=== PATIENT | male | born 1945 | race Caucasian/White ===

== ENCOUNTER 2016-06-09 10:45 | Emergency (ER) | payer OTHER, MEDICARE ==
[2016-06-09 10:56] VITALS: O2SAT 94
[2016-06-09] MEDS ORDERED: DOXYCYCLINE HYCLATE 100 MG CAP/TAB PO ONE (12:04)
[2016-06-09] MEDS ORDERED: TDAP ADULT 0.5 ML INJ (BOOSTRIX) IM ONE (12:04)
[2016-06-09] MEDS ORDERED: CEPHALEXIN 500 MG CAP PO ONE (12:04)
--- NOTE | 2016-06-09 12:04 | EDPHY ---
H & P Stated Complaint: Chronic scab/inflammation R elbow that is worse in last 48 hrs Source: Patient Exam Limitations: No limitations - Personal History Current Tetanus Diphtheria and Acellular Pertussis (TDAP): Unsure - Medical/Surgical History Hx Asthma: No Hx Chronic Respiratory Disease: No Hx Diabetes: Yes Hx Cardiac Disease: Yes Hx Renal Disease: No Hx Cirrhosis: No Hx Alcoholism: No Hx HIV/AIDS: No Hx Splenectomy or Spleen Trauma: No Other PMH: Diabetes, afib, peripheral neuropathy, CIDP. Hernia repair - Social History Smoking Status: Never smoked Time Seen by Provider: 06/09/16 11:15 HPI/ROS: CHIEF COMPLAINT: Right elbow wound HISTORY OF PRESENT ILLNESS: 70-year-old male presents emergency department complaining of redness, swelling and tenderness to right elbow. Patient reports he has had a scab on this right elbow for several weeks, he is unsure how he got this. Patient has a history of insulin-dependent diabetes and neuropathy. He denies fevers or chills. Blood sugars have been in the mid 100s. He denies fevers or chills, reports he has felt more tired over the last few weeks but also was started on metoprolol. Tetanus is up-to-date. REVIEW OF SYSTEMS: A comprehensive 10 point review of systems is otherwise negative aside from elements mentioned in the history of present illness. (Courtney Carl) - Physical Exam Exam: Physical Exam Gen: Alert and Oriented, NAD HEENT: PERRL, moist mucous membranes NECK: no meningismus CV: Regular rate, irregular rhythm PULM: CTAB, no wheezes ABDOMEN: soft, non tender to palpation, BS present BACK: No CVA tenderness NEURO: Neurologically grossly intact EXTREMITIES: normal appearing SKIN: Right elbow with 1 cm x 1 cm central scab surrounding erythema 2 cm x 2 cm, no lymphangitic streaking, no drainage, tenderness to palpation, no fluctuance, 2+ radial pulses. PSYCH: answers questions appropriately. (Courtney Carl) Constitutional: Initial Vital Signs Temperature (C) 36.7 C 06/09/16 10:52 Heart Rate 114 H 06/09/16 10:52 Respiratory Rate 18 06/09/16 10:52 Blood Pressure 114/60 06/09/16 10:52 O2 Sat (%) 94 06/09/16 10:52 O2 Delivery Mode Room Air Allergies/Adverse Reactions: carvedilol [From Coreg] Allergy (Unknown, Verified 06/09/16 10:56) meperidine HCl [From Demerol] Allergy (Unknown, Verified 06/09/16 10:56) metronidazole [From Flagyl] Allergy (Unknown, Verified 06/09/16 10:56) midazolam HCl [From Versed] Allergy (Unknown, Verified 06/09/16 10:56) Home Medications: Medication Instructions Recorded Alendronate Sodium [Fosamax 70 MG 70 mg PO 06/09/16 (*)] Cephalexin [Keflex] 500 mg PO QID 5 Days 06/09/16 Citalopram [CeleXA] 40 mg PO 06/09/16 Doxycycline Hyclate 100 mg PO BID #20 tab 06/09/16 Furosemide [Lasix 20 MG (*)] 10 mg PO 06/09/16 Insulin Lispro [humALOG LISPRO 100 0 unit SC 06/09/16 units/ml (*)] Metoprolol Tartrate [Lopressor 25 25 mg PO 06/09/16 mg (*)] Naftifine HCl [Naftin] 40 gm TP 06/09/16 Warfarin Sodium [Coumadin 2.5MG 2.5 mg PO 06/09/16 (*)] azaTHIOprine [Imuran 50 mg (*)] 50 mg PO 06/09/16 Medical Decision Making Procedures: Right elbow wound was debrided with a scalpel and tweezers. Silvasorb ointment and dressing applied. (Courtney Carl) ED Course/Re-evaluation: 70-year-old male presents with right elbow cellulitis. Wound care nurse evaluated the patient and recommended debridement, SilvaSorb and dressing with wound care follow-up. Patient has no systemic symptoms, he is afebrile. He is a type 1 diabetic, blood sugars are continuously monitored with a insulin pump, blood sugars have been in the mid 100's. Patient is given strict return precautions to return for worsening symptoms, fevers, spreading of erythema. He is instructed to watch his blood sugars closely. He is discharged with a prescription for Keflex and doxycycline. He was given his 1st dose here in the emergency department. (Courtney Carl) I did not see this patient while he was in the emergency department. However his care was discussed with the nurse practitioner while the patient was in the department. Agree with treatment plan and management (Kishan Manuel) Differential Diagnosis: Diagnosis considered but not limited to septic bursitis, cellulitis, septic joint, necrotizing fasciitis (Courtney Carl) - Data Points Medications Given: Discontinued Medications Cephalexin HCl (Keflex) 500 mg PO EDNOW ONE PRN Reason: Protocol Stop: 06/09/16 12:05 Last Admin: 06/09/16 12:50 Dose: 500 mg Diphtheria/Tetanus/Acell Pertussis (Boostrix) 0.5 ml IM .ONCE ONE Stop: 06/09/16 12:05 Last Admin: 06/09/16 12:51 Dose: 0.5 ml Doxycycline Hyclate (Doxycycline Hyclate) 100 mg PO EDNOW ONE PRN Reason: Protocol Stop: 06/09/16 12:05 Last Admin: 06/09/16 12:51 Dose: 100 mg Departure - Departure Disposition: Home, Routine, Self-Care Clinical Impression: Open wound of right elbow, Cellulitis Condition: Good Instructions: Cellulitis (ED) Additional Instructions: Take your antibiotics as prescribed, 500 mg Keflex 4 times a day for 5 days and doxycycline 100 mg twice daily for 10 days. Keep the current dressing in place for 48-72 hours, follow up with your primary care doctor or the wound care clinic for wound check in 48-72 hours. Return to the emergency department for redness that is spreading beyond the bandage, fevers, increased pain, new symptoms or concerns. Continue to monitor your blood sugar closely. Referrals: Zach Cui MD [Primary Care Provider] - As per Instructions [facility] [Clinic] - As per Instructions Prescriptions: Cephalexin [Keflex] 500 mg PO QID 5 Days Doxycycline Hyclate 100 mg PO BID #20 tab
[2016-06-09 13:12] VITALS: BP 100/81; PULSE 99; RESP 14; TEMP 98.4
== END 2016-06-09 13:10 | disposition home or self-care (01) ==
DX: L03.113 Cellulitis of right upper limb (principal); S51.001A Unspecified open wound of right elbow, initial encounter; E11.9 Type 2 diabetes mellitus without complications; Z79.4 Long term (current) use of insulin; Z79.01 Long term (current) use of anticoagulants; Z23 Encounter for immunization; X58.XXXA Exposure to other specified factors, initial encounter

== ENCOUNTER → 2016-07-29 | Outpatient (CLI) | payer OTHER, MEDICARE | LOC: BHFA 09:15 | PROVIDERS: ATTEND Internal Medicine Cardiovascular Disease | DX: I48.91 Unspecified atrial fibrillation (principal); R06.00 Dyspnea, unspecified ==

== ENCOUNTER → 2016-07-31 | Outpatient (CLI) | payer OTHER, MEDICARE | LOC: BHFA 14:00 | PROVIDERS: ATTEND Internal Medicine Cardiovascular Disease | DX: I50.21 Acute systolic (congestive) heart failure (principal); I48.91 Unspecified atrial fibrillation; R06.02 Shortness of breath; R53.83 Other fatigue ==

== ENCOUNTER 2016-08-07 06:47 | Observation (INO) | payer OTHER, MEDICARE ==
[2016-08-07] MEDS ORDERED: diphenhydrAMINE 25 MG CAP PO ONE (06:51)
[2016-08-07] MEDS ORDERED: NS 1,000 ML IV ONE (06:51)
[2016-08-07] MEDS ORDERED: ceFAZolin 2 GM/DEXTROSE 100 ML IV ONE (06:51)
[2016-08-07] MEDS ORDERED: DIAZEPAM 5 MG TAB PO ONE (06:51)
[2016-08-07] MEDS ORDERED: BACITRACIN IRRIGATION/NS 50,000 UNITS/1,000 ML BTL IRR ONE (06:51)
[2016-08-07 07:40] LABS: % IMMATURE GRANULYOCYTES 0.6 % (0.0-1.1); ABSOLUTE IMMATURE GRANULOCYTES 0.04 10^3/uL (0.00-0.10); ADD DIFF? NO; ADD MORPH? NO; ADD SCAN? NO; ATYPICAL LYMPHOCYTE FLAG 0 (0-99); FRAGMENT RBC FLAG 0 (0-99); HEMATOCRIT 44.5 % (40.0-51.0); HEMOGLOBIN 15.5 g/dL (13.7-17.5); LEFT SHIFT FLG 0 (0-99); LIPEMIA HEMOLYSIS FLAG 90 (0-99); MEAN CELL HEMOGLOBIN 36.9 pg (27.9-34.1); MEAN CELL HEMOGLOBIN CONCENTR. 34.8 g/dL (32.4-36.7); MEAN PLATELET VOLUME 9.8 fL (8.7-11.7); PLATELET CLUMPS FLAG 0 (0-99); PLATELET COUNT 193 10^3/uL (150-400); RED CELL DISTRIBUTION WIDTH 14.2 % (11.5-15.2)
[2016-08-07 07:48] LABS: INR 1.43 (0.83-1.16); PROTIME(PATIENT) 17.4 SEC (12.0-15.0)
--- NOTE | 2016-08-07 07:48 | CPEKG ---
Heart Rate: 82 RR Interval: 732 QRSD Interval: 164 QT Interval: 480 QTC Interval: 561 QRS [place]: -32 T Wave [place]: 164 EKG Severity - ABNORMAL ECG - EKG Impression: ATRIAL FIBRILLATION EKG Impression: LEFT BUNDLE BRANCH BLOCK Electronically Signed By: Ger Dumont 07-Aug-2016 12:04:55
[2016-08-07 08:07] LABS: ANION GAP 9 mEq/L (8-16); CARBON DIOXIDE 24 mEq/l (22-31); CHLORIDE 104 mEq/L (97-110); CREATININE 0.8 mg/dL (0.7-1.3); GLOMERULAR FILTRATION RATE > 60; GLUCOSE 116 mg/dL (70-100); POTASSIUM 4.7 mEq/L (3.5-5.2); SODIUM 137 mEq/L (134-144)
[2016-08-07] MEDS ORDERED: BUPIVACAINE 0.5% 30 ML SDV ONE (08:33)
[2016-08-07] MEDS ORDERED: IOPAMIDOL (ISOVUE-300) 100 ML BTL IV ONE (08:33)
[2016-08-07] MEDS ORDERED: LIDOCAINE 1% 30 ML SDV ONE (08:33)
[2016-08-07] MEDS ORDERED: fentaNYL 100 MCG/2 ML INJ ONE (09:06)
[2016-08-07] MEDS ORDERED: PROPOFOL/EMULSION 500 MG/50 ML BOTTLE IV ONE (09:07)
[2016-08-07] MEDS ORDERED: PHENYLEPHRINE HCL 100 MCG/ML SYR ONE ×2 (10:15)
[2016-08-07] MEDS ORDERED: epHEDrine SULFATE 10 MG/ML SYR ONE (10:22)
[2016-08-07] MEDS ORDERED: HYDROCODONE/APAP 5/325 TAB PO PRN (11:15)
--- NOTE | 2016-08-07 11:25 | CPEKG ---
Heart Rate: 90 RR Interval: 667 QRSD Interval: 164 QT Interval: 424 QTC Interval: 519 QRS [place]: -44 T Wave [place]: 152 EKG Severity - ABNORMAL ECG - EKG Impression: ATRIAL FIBRILLATION AND V-PACED COMPLEXES EKG Impression: LEFT BUNDLE BRANCH BLOCK Electronically Signed By: Ger Dumont 08-Aug-2016 14:03:13
[2016-08-07] MEDS ORDERED: NON-FORMULARY NEW DRUG (Insulin Pump, Patient Own 1 EA) MISC SCH (11:30)
--- NOTE | 2016-08-07 12:01 | EPPROC ---
Electrophysiology Procedure Note: PROCEDURE PERFORMED: 1. Implantation of BiV Pacemaker 2. Subclavian vein angiography 3. Fluoroscopy INDICATION: Left bundle-branch block Nonischemic cardiomyopathy Permanent atrial fibrillation with rapid ventricular response, uncontrolled with medical therapy, planned AV node ablation in 1 month PROCEDURE NOTE: Patient presented to the cardiac catheterization laboratory in a fasting, postabsorptive state. Anesthesiologist administered moderate sedation. The left infraclavicular area was prepped and draped in the usual sterile fashion. Lidocaine plus bupivacaine was used for local anesthesia. Left subclavian venography was performed by injection of iodinated contrast into the left antecubital vein. This was done to assure patency of the vein and also to assess for any anatomical aberrations. Using a combination of blunt and sharp dissection and electrocautery, the dissection was carried down to the prepectoral fascia. A pocket was made in this anatomical plane. All bleeding was controlled with electrocautery. The pocket was packed with gauze soaked in antibiotic solution. Fluoroscopy was utilized during the entire procedure for venous access and placement of the leads. Using a direct stick technique the left extra thoracic axillary vein was accessed with 2 sticks using the modified Seldinger technique. Placement of the guide wires into the venous system was confirmed by low pressure blood return and also by visualizing the guide wires advancing into the inferior vena cava. A purse string suture was applied around the guide wires. 1 # 6 Tongan sheaths was advanced under fluoroscopic guidance over the guide wire. An active fixation ventricular lead was advanced into the right ventricular apex and screwed in place. The peel away sheath was removed. Pacing thresholds, sensing parameters and lead impedances were measured. There was no diaphragmatic stimulation at maximum output. The lead was sutured to the prepectoral fascia with 3 nonabsorbable sutures. A 9 Tongan sheath was advanced over the guidewire into the subclavian vein. Using a Thoora delivery system the coronary sinus ostium was engaged. Occlusion retrograde coronary sinus angiography was performed in 2 views. A coronary sinus quadrapolar lead was advanced into the coronary sinus. An angioplasty wire was advanced through the lead and advanced distally into the mid portion of the lateral branch of the coronary sinus. The lead was advanced over the angioplasty wire. Pacing threshold, sensing and impedance was determined. There was no diaphragmatic stimulation at maximum output. The delivery system and the 9 Fr sheath were peeled away. Again, pacing threshold, sensing and impedance was determined. There was no diaphragmatic stimulation at maximum output. The CS lead was secured to the prepectoral fascia with 3 nonabsorbable sutures. Pacing threshold and sensing parameters of the RV and LV leads were checked again. The gauze packing was removed from the pacemaker pocket. The pocket was again inspected for any bleeding. The lead was attached to the pacemaker securely. The pacemaker was inserted into the pocket and secured in place with a nonabsorbable suture. Fluoroscopy was performed in TIWARI and BENGALI planes to verify right sided placement of the leads. Also fluoroscopy of the pacemaker pocket was performed. The pacemaker pocket was closed in 3 layers with absorbable monocryl sutures and emma. Appropriate dressing was applied. The patient left the cardiac catheterization laboratory in stable condition. Serial Numbers: 1. Device [facility] Quadra Allure MP RF [id number] SN [id number] 2. Right Ventricular Lead SJM Tendril [id number] SN [id number] 3. Left Ventricular Lead SJM 1457Q 75 cm SN [id number] Stimulation Thresholds & Impedance Measurements: 1. Right Ventricular Lead R-wave 10.1 mV, 0.5 volts at 0.5 milliseconds, 796 Ohms 2. Left Ventricular Lead R-wave 8.3 mV, 0.8 volts at 0.5 milliseconds, 839 Ohms Bari Pacing Parameters: 1. Pacing mode VVTR 2. Lower rate 60 beats per minute 3. Upper rate 130 beats per minute Patient Problems: Problems Problem Status Onset CHF (congestive heart failure), NYHA class II Acute LBBB (left bundle branch block) Acute Diabetes Acute Neuropathy Acute Atrial fibrillation Acute Thoracic aneurysm Acute Bicuspid aortic valve Acute Chronic inflammatory demyelinating neuropathy Chronic 10/21/13
[2016-08-07] MEDS ORDERED: D50W 25 GM/50 ML SYR IVP PRN (13:18)
[2016-08-07] MEDS ORDERED: INSULIN PUMP MISC SCH (13:30)
[2016-08-07] MEDS: METOPROLOL TARTRATE 25 MG TAB PO SCH ×2 (16:37→22:07)
[2016-08-07] MEDS ORDERED: NS 250 ML IV ONE ×2 (17:00)
[2016-08-07] MEDS ORDERED: MULTIVITAMINS 1 EACH TAB PO SCH (18:00)
[2016-08-07] MEDS ORDERED: NON-FORMULARY NEW DRUG (Glucosam/Chondr/Collagn/Hyalur [Glucosamine & Chondroitin Cap] 1 E PO SCH (18:00)
[2016-08-07] MEDS: GLUCOSAMINE/CHONDROITIN CAP PO SCH (18:17)
[2016-08-07] MEDS ORDERED: predniSONE 10 MG TAB PO SCH (21:00)
[2016-08-07] MEDS ORDERED: LATANOPROST 0.005% 2.5 ML OPHT DROPS EACHEYE SCH (21:00)
[2016-08-08 04:25] VITALS: O2SAT 94
[2016-08-08 05:18] LABS: % IMMATURE GRANULYOCYTES 0.5 % (0.0-1.1); ABSOLUTE IMMATURE GRANULOCYTES 0.04 10^3/uL (0.00-0.10); ADD DIFF? NO; ADD MORPH? NO; ADD SCAN? NO; ATYPICAL LYMPHOCYTE FLAG 0 (0-99); FRAGMENT RBC FLAG 0 (0-99); HEMATOCRIT 45.1 % (40.0-51.0); HEMOGLOBIN 15.7 g/dL (13.7-17.5); LEFT SHIFT FLG 10 (0-99); LIPEMIA HEMOLYSIS FLAG 90 (0-99); MEAN CELL HEMOGLOBIN 36.8 pg (27.9-34.1); MEAN CELL HEMOGLOBIN CONCENTR. 34.8 g/dL (32.4-36.7); MEAN CELL VOLUME 105.6 fL (81.5-99.8); MEAN PLATELET VOLUME 10.1 fL (8.7-11.7); PLATELET CLUMPS FLAG 0 (0-99); PLATELET COUNT 178 10^3/uL (150-400); RED BLOOD CELL COUNT 4.27 10^6/uL (4.40-6.38); RED CELL DISTRIBUTION WIDTH 14.4 % (11.5-15.2)
[2016-08-08 05:26] LABS: ANION GAP 6 mEq/L (8-16); CALCIUM 8.7 mg/dL (8.5-10.4); CARBON DIOXIDE 24 mEq/l (22-31); CHLORIDE 104 mEq/L (97-110); CREATININE 0.7 mg/dL (0.7-1.3); GLOMERULAR FILTRATION RATE > 60; GLUCOSE 150 mg/dL (70-100); POTASSIUM 4.9 mEq/L (3.5-5.2); SODIUM 134 mEq/L (134-144)
[2016-08-08] MEDS: GLUCOSAMINE/CHONDROITIN CAP PO SCH (08:35)
[2016-08-08] MEDS: METOPROLOL TARTRATE 25 MG TAB PO SCH (08:35)
--- NOTE | 2016-08-08 08:52 | CPEKG ---
Heart Rate: 104 RR Interval: 577 QRSD Interval: 164 QT Interval: 440 QTC Interval: 579 QRS [place]: -4 T Wave [place]: 74 EKG Severity - ABNORMAL ECG - EKG Impression: PACEMAKER SPIKES OR ARTIFACTS EKG Impression: ATRIAL FIBRILLATION, V-RATE 69-108 EKG Impression: MULTIFORM VENTRICULAR PREMATURE COMPLEXES EKG Impression: IVCD, CONSIDER ATYPICAL LBBB Electronically Signed By: Ger Dumont 08-Aug-2016 14:03:39
[2016-08-08] MEDS ORDERED: CITALOPRAM 20 MG TAB PO SCH (09:00)
[2016-08-08] MEDS ORDERED: CETIRIZINE 10 MG TAB PO SCH (09:00)
[2016-08-08] MEDS ORDERED: OMEGA-3 FATTY ACIDS 1,000 MG CAP PO SCH (09:00)
[2016-08-08] MEDS ORDERED: azaTHIOprine 50 MG TAB PO SCH (09:00)
[2016-08-08] MEDS ORDERED: NON-FORMULARY NEW DRUG (Loratadine [Loratadine] 10 MG) PO SCH (09:00)
[2016-08-08] MEDS ORDERED: FUROSEMIDE 40 MG TAB PO SCH (09:00)
[2016-08-08] MEDS ORDERED: WARFARIN SODIUM 5 MG TAB PO SCH (09:00)
[2016-08-08] MEDS ORDERED: buPROPion SR 100 MG TAB PO SCH (09:00)
[2016-08-08 09:18] VITALS: BP 92/59; PULSE 86; RESP 16; TEMP 97.8
--- NOTE | 2016-08-08 14:01 | GDS ---
[f rep st] DISCHARGE SUMMARY ADMISSION DIAGNOSES: 1. Nonischemic cardiomyopathy, with ejection fraction of 27%. 2. Left bundle branch block. 3. Permanent atrial fibrillation, with rapid ventricular response. 4. Bicuspid aortic valve, with moderate to severe aortic stenosis and moderate mitral regurgitation . 5. Insulin-dependent diabetes mellitus. 6. Chronic inflammatory demyelinating polyneuropathy. DISCHARGE DIAGNOSES: 1. Nonischemic cardiomyopathy, with ejection fraction of 27%. 2. Left bundle branch block. 3. Permanent atrial fibrillation, with rapid ventricular response. 4. Bicuspid aortic valve, with moderate to severe aortic stenosis and moderate mitral regurgitation . 5. Insulin-dependent diabetes mellitus. 6. Chronic inflammatory demyelinating polyneuropathy. 7. Status post biventricular pacemaker implanted. BRIEF HISTORY: This is a 71-year-old man with a history of nonischemic cardiomyopathy and permanent atrial fibrillation with RVR. His cardiomyopathy had been worsening, and his symptoms have been in creasing. The plan is for AV node ablation in 1 month. HOSPITAL COURSE: What was implanted was a [employer] Quadra Allure MP biventricular pacemaker without complications. The patient was stable overnight. He had no fever or chills, and he is fee ling well this morning. Pacemaker interrogation today demonstrated the RV capture threshold at 0.5 volts at 0.5 milliseconds and an LV capture threshold of 1 volt at 0.5 milliseconds. Mode is VVT, a nd base rate is 70 beats per minute. PHYSICAL EXAMINATION: VITAL SIGNS: Blood pressure is 91/67, pulse 70, respirations 18, temperature 36.7, and O2 saturation on room air is 94%. GENERAL: He is alert and oriented, sitting up in bed in no distress. CARDIAC: Irregular rhythm, with a 2/6 systolic murmur. LUNGS: Clear to auscultat ion. Pacemaker dressing is dry and intact, without any dried blood on the cause. There is minimal swelling. EXTREMITIES: Warm. No discoloration. No lower extremity edema. LABORATORY DATA: WBC is 7.41, hemoglobin 4.27, hematocrit 15.7, and platelets 178K. Sodium 134, po tassium 4.9, chloride 104, bicarb 24, BUN 13, creatinine 0.7, glucose 150. Of note, on August 07 s hemoglobin A1c was 6.0. Chest x-ray prior to discharge demonstrated appropriate RV and LV lead pl acement, without effusion. ACTIVITY: Activity restrictions were reviewed with the patient and printed on the discharge form. FOLLOWUP: He has a pacemaker check on August 15 at 2:30 at [facility], and he is scheduled next m [facility] for the AV node ablation with Dr. Payne and will follow up after that. /[id number]/MODL
[2016-08-09] MEDS ORDERED: WARFARIN SODIUM 2.5 MG TAB PO SCH (09:00)
[2016-08-13] MEDS ORDERED: ALENDRONATE SODIUM 70 MG TAB PO SCH (08:00)
== END 2016-08-08 11:40 | disposition home or self-care (01) ==
LOC: FCATH 06:47 → F2W 11:06
PROVIDERS: ADMIT Internal Medicine Cardiovascular Disease; ATTEND Internal Medicine Cardiovascular Disease
PROC: 02H63JZ Insertion of Pacemaker Lead into Right Atrium, Percutaneous Approach (ICD-10-PCS; principal; 2016-08-07)
PROC: 0JH606Z Insertion of Pacemaker, Dual Chamber into Chest Subcutaneous Tissue and Fascia, Open Approach (ICD-10-PCS; principal; 2016-08-07)
PROC: 02HK3JZ Insertion of Pacemaker Lead into Right Ventricle, Percutaneous Approach (ICD-10-PCS; principal; 2016-08-07)
DX: I44.7 Left bundle-branch block, unspecified (principal); I48.2 Chronic atrial fibrillation; I42.9 Cardiomyopathy, unspecified; E11.9 Type 2 diabetes mellitus without complications; G47.33 Obstructive sleep apnea (adult) (pediatric); I35.0 Nonrheumatic aortic (valve) stenosis; I34.0 Nonrheumatic mitral (valve) insufficiency
CPT/HCPCS: 33208; 71010; 71020; 93005; C1769; C1892; C1893; C1898; C1900; C2621; J0690; J2370; J2704; J3010; J7500; Q9967

== ENCOUNTER 2016-09-04 06:41 | Observation (INO) | payer OTHER, MEDICARE ==
[2016-09-04] MEDS ORDERED: MIDAZOLAM 2 MG/2 ML VIAL IVP ONE (06:47)
[2016-09-04] MEDS ORDERED: NS 1,000 ML IV ONE (06:47)
[2016-09-04] MEDS ORDERED: BACITRACIN IRRIGATION/NS 50,000 UNITS/1,000 ML BTL IRR ONE (06:47)
[2016-09-04] MEDS ORDERED: ceFAZolin 2 GM/DEXTROSE 100 ML IV ONE (06:47)
--- NOTE | 2016-09-04 07:23 | CPEKG ---
Heart Rate: 70 RR Interval: 857 QRSD Interval: 140 QT Interval: 452 QTC Interval: 488 QRS [place]: -74 T Wave [place]: 99 EKG Severity - ABNORMAL ECG - EKG Impression: AFIB/FLUTTER AND VENTRICULAR-PACED RHYTHM Electronically Signed By: Anshu Salvador 04-Sep-2016 07:46:16
[2016-09-04] MEDS ORDERED: BUPIVACAINE 0.5% 30 ML SDV ONE (07:31)
[2016-09-04] MEDS ORDERED: LIDOCAINE 1% 300 MG/30 ML SDV ONE (07:31)
[2016-09-04] MEDS ORDERED: HEPARIN 10,000 UNIT/10 ML MDV ONE (07:31)
[2016-09-04 07:37] LABS: % IMMATURE GRANULYOCYTES 0.9 % (0.0-1.1); ABSOLUTE IMMATURE GRANULOCYTES 0.05 10^3/uL (0.00-0.10); ADD DIFF? NO; ADD MORPH? NO; ADD SCAN? NO; ATYPICAL LYMPHOCYTE FLAG 0 (0-99); FRAGMENT RBC FLAG 0 (0-99); HEMATOCRIT 40.5 % (40.0-51.0); HEMOGLOBIN 14.7 g/dL (13.7-17.5); LEFT SHIFT FLG 0 (0-99); LIPEMIA HEMOLYSIS FLAG 90 (0-99); MEAN CELL HEMOGLOBIN 37.6 pg (27.9-34.1); MEAN CELL HEMOGLOBIN CONCENTR. 36.3 g/dL (32.4-36.7); MEAN CELL VOLUME 103.6 fL (81.5-99.8); MEAN PLATELET VOLUME 9.6 fL (8.7-11.7); PLATELET CLUMPS FLAG 10 (0-99); PLATELET COUNT 170 10^3/uL (150-400); RED BLOOD CELL COUNT 3.91 10^6/uL (4.40-6.38); RED CELL DISTRIBUTION WIDTH 14.3 % (11.5-15.2)
[2016-09-04 07:46] LABS: INR 2.01 (0.83-1.16); PROTIME(PATIENT) 22.9 SEC (12.0-15.0)
[2016-09-04 07:47] LABS: APTT 33.3 SEC (23.0-38.0)
[2016-09-04 07:56] LABS: ANION GAP 8 mEq/L (8-16); CARBON DIOXIDE 27 mEq/l (22-31); CHLORIDE 103 mEq/L (97-110); CREATININE 0.7 mg/dL (0.7-1.3); GLOMERULAR FILTRATION RATE > 60; GLUCOSE 133 mg/dL (70-100); MAGNESIUM 2.2 mg/dL (1.6-2.3); POTASSIUM 4.7 mEq/L (3.5-5.2); SODIUM 138 mEq/L (134-144)
[2016-09-04] MEDS ORDERED: ROCURONIUM 50 MG/5 ML VIAL ONE (08:20)
[2016-09-04] MEDS ORDERED: PROPOFOL 200 MG/20 ML VIAL ONE ×2 (08:20)
[2016-09-04] MEDS ORDERED: ONDANSETRON 4 MG/2 ML VIAL ONE (08:20)
[2016-09-04] MEDS ORDERED: DEXAMETHASONE 4 MG/ML VIAL ONE (08:20)
[2016-09-04] MEDS ORDERED: fentaNYL 100 MCG/2 ML INJ ONE (08:20)
[2016-09-04] MEDS ORDERED: epHEDrine SULFATE 10 MG/ML SYR ONE (09:41)
[2016-09-04] MEDS ORDERED: PHENYLEPHRINE HCL 100 MCG/ML SYR ONE (09:41)
[2016-09-04] MEDS ORDERED: ATROPINE SULFATE 1 MG/ML VIAL ONE ×2 (09:53→10:01)
[2016-09-04] MEDS ORDERED: NAFTIFINE HCL TP PRN (10:29)
--- NOTE | 2016-09-04 10:29 | EPPROC ---
Electrophysiology Procedure Note: CATHETER MEDIATED ABLATION OF THE AV JUNCTION Procedures performed: [id number] AV node ablation Fluoroscopy Pacemaker reprogramming INDICATION: Atrial fibrillation, unable to rate control despite maximally tolerated medical therapy Catheters & Anesthesia: The patient arrived in the Electrophysiology Laboratory in the fasting state. Moderate sedation was administered by anesthesiologist. The right groin and left groin area were prepped and draped in the usual sterile manner. Appropriate non-invasive blood pressure, pulse oximetry and end-tidal CO2 monitoring was established. All catheters were placed percutaneously using the modified Seldinger technique and advanced into position under fluoroscopic guidance). At baseline the patient was noted to be in AFIB with a mean ventricular rate of 90 bpm. A #7 Spanish deflectable quadrapolar electrode catheter (2mm-5mm-2mm spacing) with 8 mm tip electrode was advanced to the right atrium. A total of 7 RF applications were delivered. RF#1 was applied in the area of the compact AV node. RF#2 was applied to the same area as RF#1. RF#3 was applied to the area of the fast AV bere pathway. RF#4 was applied to the right midseptal tricuspid annulus. There was complete AV block after RF4. Cessation of pacing revealed that there was junctional escape rhythm at a rate of 32bpm. Atropine 0.5 mg was given x3 and with the first dose of atropine there was return of AV bere conduction at 52 bpm. Further RF applications caused complete AV block with junctional rhythm at 32 bpm despite atropine. BiV Pacemaker implantation was done previously. The pacemaker was programmed to a lower rate of 80 ppm to reduce the risk of sudden associated with torsades de pointes. The lower rate will gradually be reduced to 60 ppm after 1 month . Fluoroscopically pacemaker lead positions were unchanged after procedure. Pacemaker thresholds and impedances were unchanged after the procedure. The catheters were removed. The patient was transferred to the cardiovascular holding area in stable condition. Vascular access sheaths were removed in the holding area. There were no apparent complications. CONCLUSIONS: 1. Atrial fibrillation with rapid ventricular response. 2. Successful ablation of the AV junction producing complete AV block. 3. Junctional escape rhythm at a rate of 32 bpm. 4. No complications. Patient Problems: Problems Problem Status Onset CHF (congestive heart failure), NYHA class II Acute LBBB (left bundle branch block) Acute Diabetes Acute Neuropathy Acute Atrial fibrillation Acute Thoracic aneurysm Acute Bicuspid aortic valve Acute Chronic inflammatory demyelinating neuropathy Chronic 10/21/13
[2016-09-04] MEDS ORDERED: NON-FORMULARY NEW DRUG (Insulin Pump, Patient Own 1 EA) MISC SCH (10:30)
[2016-09-04] MEDS ORDERED: ONDANSETRON 4 MG/2 ML VIAL IVP PRN (10:31)
[2016-09-04] MEDS ORDERED: OXYCODONE/APAP 5/325 TAB PO PRN (10:31)
[2016-09-04] MEDS ORDERED: ACETAMINOPHEN 325 MG TAB PO PRN (10:31)
--- NOTE | 2016-09-04 11:09 | CPEKG ---
Heart Rate: 80 RR Interval: 750 P-R Interval: 158 QRSD Interval: 144 QT Interval: 452 QTC Interval: 522 P [place]: 0 QRS [place]: -79 T Wave [place]: 92 EKG Severity - ABNORMAL ECG - EKG Impression: VENTRICULAR-PACED RHYTHM Electronically Signed By: Anshu Salvador 04-Sep-2016 15:07:16
[2016-09-04 11:37] LABS: ANION GAP 8 mEq/L (8-16); CALCIUM 8.2 mg/dL (8.5-10.4); CARBON DIOXIDE 26 mEq/l (22-31); CHLORIDE 106 mEq/L (97-110); CREATININE 0.7 mg/dL (0.7-1.3); GLOMERULAR FILTRATION RATE > 60; GLUCOSE 64 mg/dL (70-100); MAGNESIUM 2.2 mg/dL (1.6-2.3); POTASSIUM 3.9 mEq/L (3.5-5.2); SODIUM 140 mEq/L (134-144)
[2016-09-04] MEDS ORDERED: D50W 25 GM/50 ML SYR IVP PRN (15:00)
[2016-09-04] MEDS ORDERED: INSULIN PUMP, PATIENT OWN 1 EA MISC SCH (15:00)
[2016-09-04] MEDS: METOPROLOL TARTRATE 25 MG TAB PO SCH ×2 (15:22→20:52)
[2016-09-04] MEDS: NON-FORMULARY NEW DRUG (Glucosam/Chondr/Collagn/Hyalur [Glucosamine & Chondroitin Cap] 1 E PO SCH (17:20)
[2016-09-04] MEDS ORDERED: MULTIVITAMINS 1 EACH TAB PO SCH (18:00)
[2016-09-04 18:10] LABS: HEMOGLOBIN A1C 6.4 % (4.0-6.0)
[2016-09-04] MEDS ORDERED: predniSONE 10 MG TAB PO SCH (21:00)
[2016-09-04] MEDS ORDERED: NS BOLUS 500 ML (Wide open) IV ONE (21:00)
[2016-09-04] MEDS ORDERED: LATANOPROST 0.005% 2.5 ML OPHT DROPS EACHEYE SCH (21:00)
[2016-09-05 03:33] VITALS: TEMP 97.8
[2016-09-05 04:48] LABS: % IMMATURE GRANULYOCYTES 0.6 % (0.0-1.1); ABSOLUTE IMMATURE GRANULOCYTES 0.04 10^3/uL (0.00-0.10); ADD DIFF? NO; ADD MORPH? NO; ADD SCAN? NO; ATYPICAL LYMPHOCYTE FLAG 0 (0-99); FRAGMENT RBC FLAG 0 (0-99); HEMATOCRIT 37.3 % (40.0-51.0); HEMOGLOBIN 13.5 g/dL (13.7-17.5); LEFT SHIFT FLG 10 (0-99); LIPEMIA HEMOLYSIS FLAG 90 (0-99); MEAN CELL HEMOGLOBIN CONCENTR. 36.2 g/dL (32.4-36.7); MEAN CELL VOLUME 105.1 fL (81.5-99.8); PLATELET CLUMPS FLAG 0 (0-99); PLATELET COUNT 147 10^3/uL (150-400); RED BLOOD CELL COUNT 3.55 10^6/uL (4.40-6.38); RED CELL DISTRIBUTION WIDTH 14.5 % (11.5-15.2)
[2016-09-05 05:03] LABS: INR 1.7 (0.83-1.16)
[2016-09-05 05:05] LABS: ANION GAP 7 mEq/L (8-16); CALCIUM 8.9 mg/dL (8.5-10.4); CARBON DIOXIDE 27 mEq/l (22-31); CHLORIDE 102 mEq/L (97-110); CREATININE 0.7 mg/dL (0.7-1.3); GLOMERULAR FILTRATION RATE > 60; GLUCOSE 198 mg/dL (70-100); POTASSIUM 5.5 mEq/L (3.5-5.2); SODIUM 136 mEq/L (134-144)
[2016-09-05 05:12] LABS: CREATINE KINASE-MB FRACTION 2.38 ng/mL (0-3.19); TROPONIN I 0.117 ng/mL (0-0.034)
[2016-09-05 07:33] VITALS: BP 101/77; PULSE 83; RESP 16; O2SAT 96
[2016-09-05] MEDS ORDERED: ALENDRONATE SODIUM 70 MG TAB PO SCH (08:00)
[2016-09-05] MEDS: NON-FORMULARY NEW DRUG (Glucosam/Chondr/Collagn/Hyalur [Glucosamine & Chondroitin Cap] 1 E PO SCH (08:38)
[2016-09-05] MEDS: METOPROLOL TARTRATE 25 MG TAB PO SCH (08:43)
--- NOTE | 2016-09-05 08:51 | CPEKG ---
Heart Rate: 80 RR Interval: 750 P-R Interval: 166 QRSD Interval: 142 QT Interval: 420 QTC Interval: 485 P [place]: 0 QRS [place]: -80 T Wave [place]: 97 EKG Severity - ABNORMAL ECG - EKG Impression: VENTRICULAR-PACED RHYTHM Electronically Signed By: Anshu Salvador 05-Sep-2016 08:56:49
[2016-09-05] MEDS ORDERED: buPROPion SR 100 MG TAB PO SCH (09:00)
[2016-09-05] MEDS ORDERED: azaTHIOprine 50 MG TAB PO SCH (09:00)
[2016-09-05] MEDS ORDERED: WARFARIN SODIUM 5 MG TAB PO SCH (09:00)
[2016-09-05] MEDS ORDERED: CETIRIZINE 10 MG TAB PO SCH (09:00)
[2016-09-05] MEDS ORDERED: OMEGA-3 FATTY ACIDS 1,000 MG CAP PO SCH (09:00)
[2016-09-05] MEDS ORDERED: CHOLECALCIFEROL VIT D3 2,000 UNITS TAB/CAP PO SCH (09:00)
[2016-09-05] MEDS ORDERED: FUROSEMIDE 40 MG TAB PO SCH (09:00)
[2016-09-05] MEDS ORDERED: CITALOPRAM 20 MG TAB PO SCH (09:00)
--- NOTE | 2016-09-05 16:19 | ECHO ---
[id number] + + [id number] : : [place] [address] : : [phone] + + Adult Echocardiographic Report + + :Name: RISA HOLLAND Kingsleyudyon Date: 09/05/2016 08:58 AM : : Hospital Admission Number: [id number] : :: 1945 Gender: Male Height: 70 in : :Age: 71 yrs Race: WH Weight: 171 lb : : : : BSA: 2.0 meters2: + + MMode/2D Measurements \\T\\ Calculations LVIDs: 3.6 cm ESV(Teich): 55.5 ml MV Diam: 3.9 cm Ao root diam: 3.5 cm LA dimension: 4.5 cm LVOT diam: 2.6 cmLVLd ap4: 8.6 cm SV(MOD-sp4): LVOT area: EDV(MOD-sp4): 59.0 ml 5.3 cm2 105.0 ml LVLs ap4: 8.3 cm ESV(MOD-sp4): 46.0 ml EF(MOD-sp4): 56.2 % Normal Measurement Values: + + :LVIDd (3.5-5.7cm) IVSd (0.6-1.1cm) LVPWd (0.6-1.1cm) Aortic Root (2.0-3.7cm)Left Atrium (1.5-4.0cm): :LV Vol(d) (76-115ml) LV Vol(s) (29-48ml) Ejec Fraction (50-65%)PV Shawn (0.6- 1.2m/s) TV Shawn (0.4-1.0m/s) : :MV E Shawn (0.8-1.0m/s)MV A Shawn (0.3-1.0m/s)LVOT Shawn (0.7-1.2m/s) Asc Ao Shawn ( 0.9-1.8m/s) : + + Doppler Measurements \\T\\ Calculations MV E max shawn: MV V2 max: Ao mean PG: LV V1 mean P.2 cm/sec 111.5 cm/sec 28.2 mmHg 0.86 mmHg MV A max shawn: MV max P.0 mmHg Ao V2 mean: LV V1 mean: 26.7 cm/sec MV V2 mean: 251.5 cm/sec 42.5 cm/sec MV E/A: 3.7 58.6 cm/sec Ao V2 VTI: 70.8 cmLV V1 VTI: 12.7 cm MV mean P.6 mmHg JODI(I,D): 0.95 cm2 MV V2 VTI: 23.1 cm MV area (1 diam): 11.9 cm2 MVA(VTI): 2.9 cm2 MV Flow area(1diam): 11.9 cm2 MR max shawn: SV(MV 1 diam): TR max shawn: RF(MV,Ao)(1 diam): 549.5 cm/sec 274.8 ml 241.1 cm/sec -1.4 MR max PG: SI(MV 1 diam): TR max PG: RF(MV,LVOT) 120.8 mmHg 140.7 ml/m2 23.2 mmHg (1diam): 0.76 SV(LVOT): 67.1 ml RAP systole: 10.0 mmHg RVSP(TR): 33.2 mmHg Left Ventricle The left ventricle is normal in size. There is mild concentric left ventricular hypertrophy. The left ventricular ejection fraction is normal. Ejection Fraction = 50%. There is inferior wall hypokinesis. There is lateral wall hypokinesis. Right Ventricle The right ventricle is grossly normal size. There is a pacemaker lead in the right ventricle. The right ventricular systolic function is normal. Atria The left atrium is mildly dilated. Right atrial size is normal. Mitral Valve The mitral valve leaflets appear thickened, but open well. There is moderate mitral regurgitation. Tricuspid Valve Normal tricuspid valve. There is mild tricuspid regurgitation. Right ventricular systolic pressure is normal. Aortic Valve Moderate Aortic Valve Calcification. A bicuspid aortic valve cannot be excluded. Moderate to severe valvular aortic stenosis. Trace aortic regurgitation. Pulmonic Valve The pulmonic valve is not well visualized. There is no pulmonic valvular regurgitation. Pericardium/Pleural There is no pericardial effusion. Conclusion (1) Left ventricular systolic ejection fraction was low normal (50-55%) - there is inferior and inferolateral hypokinesis noted (2) Mild concentric left ventricular hypertrophy (3) Diastolic function was not clear assessed in this study (4) Grossly normal right ventricular size and function - pacer lead to the RV chamber was noted (5) Mild dilation of the left atrial chamber with normal right atrial dimensions (6) Thickened mitral valve leaflets with moderate regurgitation noted (7) Moderate to severe aortic valve calcification with moderate sclerosis and mod to severe stenosis - mean gradient was 29 mm Hg with JODI estimated to be < 1 cm\\S\\2 - there was physiologic insufficiency noted - prior reports of "bicuspid" aortic valve, but this can not be ruled in or out with this study given the degree of calcification noted (8) Mild tricuspid regurgitation - RVSP was within normal limits (9) Poor visualization of the pulmonic valve (10) In comparison to prior echocardiogram from 12-31-, there has been improvement in LVEF (from 30-35% to current 50-55%. There continues to be pathology to the aortic valve (bicuspid? (+) stenosis with sclerosis) - recommendations for patient to maintain follow up with cardiology in light of the aortic valve pathology noted. Final Reading Physician: Tg Davis signed on 09/05/2016 04:18 PM Ordering Physician: German Payne
--- NOTE | 2016-09-05 18:36 | GDS ---
[f rep st] DISCHARGE SUMMARY ADMITTING DIAGNOSES: 1. Permanent atrial fibrillation with rapid ventricular rate. 2. Congestive heart failure. 3. Valve disease. DISCHARGE DIAGNOSES: 1. Permanent atrial fibrillation. Status post atrioventricular node ablation. 2. Congestive heart failure. 3. Valve disease. BRIEF HISTORY: This is a 71-year-old man with a history of CIDP, CHF, with prior ejection fraction of 27%, moderate to severe , and moderate MR. Previously , he had a biventricular pacemaker implanted. He was experiencing worsening dyspnea on exertion and fatigue. HOSPITAL COURSE: Dr. Payne performed a successful AV node ablation with a junctional rhythm at 32 beats per minute with pacing at 30bpm The patient did well overnight without any bleeding from his groin site. He reports feeling well this morning and has no complaints. Pacemaker was reprogrammed with mode of VVIR with a base rate of 80 beats per minute. The RV capture threshold was 0.5 V at 0.5 milliseconds, and LV capture threshold was 1.5 V at 0.5 milliseconds. TESTING DONE: Echocardiogram demonstrated ejection fraction of 50% to 55% with inferior and inferolateral hypokinesis with moderate MR and moderate to severe . EF improved from last echo. LAB WORK: WBC 6.41, hemoglobin 13.5, hematocrit 37.3, platelets are 147. Sodium is 136, potassium 5.5, chloride 102, bicarb 27, BUN 14, creatinine 0.7, glucose 198. CK 112, CK-MB 2.38. Troponin 0.117, which is elevated and to be expected post ablation. PHYSICAL EXAM: VITAL SIGNS: Blood pressure is 102/77, pulse 83, respirations 16, temperature 36.6, O2 saturation on room air is 96%. GENERAL: Patient is alert and oriented, lying in bed, in no acute distress. CARDIAC: Regular rate and rhythm with a 2/6 systolic murmur. LUNGS: Clear to auscultation. ABDOMEN : Soft, and nontender. Groin site without ecchymosis or bleeding. There is no bruit. EXTREMITIES: Warm, no discoloration. Right foot with +2 pedal pulses. DISCHARGE INSTRUCTIONS: No lifting over 10 pounds for the next week. No excessive straining. He was instructed to splint his groin site with coughing or sneezing for the next few days. DISCHARGE MEDICATIONS: Please see discharge medication reconciliation form. Of note, digoxin was stopped. FOLLOWUP: He has a followup with Dr. Payne on October 02 at 2:30. /[id number]/MODL MTDD
[2016-09-06] MEDS ORDERED: WARFARIN SODIUM 2.5 MG TAB PO SCH (09:00)
== END 2016-09-05 12:54 | disposition home or self-care (01) ==
LOC: FCATH 06:41 → F2W 09:44
PROVIDERS: ADMIT Internal Medicine Cardiovascular Disease; ATTEND Internal Medicine Cardiovascular Disease
PROC: 025K3ZZ Destruction of Right Ventricle, Percutaneous Approach (ICD-10-PCS; principal; 2016-09-04)
PROC: 5A1213Z Performance of Cardiac Pacing, Intermittent (ICD-10-PCS; principal; 2016-09-04)
PROC: 02563ZZ Destruction of Right Atrium, Percutaneous Approach (ICD-10-PCS; principal; 2016-09-04)
PROC: 4A023FZ Measurement of Cardiac Rhythm, Percutaneous Approach (ICD-10-PCS; principal; 2016-09-04)
DX: I48.2 Chronic atrial fibrillation (principal); I50.9 Heart failure, unspecified; G47.33 Obstructive sleep apnea (adult) (pediatric); F32.9 Major depressive disorder, single episode, unspecified; E11.9 Type 2 diabetes mellitus without complications; Z95.0 Presence of cardiac pacemaker
CPT/HCPCS: 93005; 93306; 93623; 93650; C1732; J0461; J1644; J2370; J2704; J3010; J7500; J0690; J1100; J2405

== ENCOUNTER 2017-01-07 06:47 | Day surgery (SDC) | payer OTHER, MEDICARE ==
[2017-01-07] MEDS ORDERED: BENZOCAINE UNIT DOSE SPRAY HURRICAINE MM ONE (06:55)
[2017-01-07] MEDS ORDERED: NS 500 ML IV ONE (06:55)
[2017-01-07] MEDS ORDERED: PROPOFOL 200 MG/20 ML VIAL ONE (08:24)
[2017-01-07] MEDS ORDERED: MIDAZOLAM 2 MG/2 ML VIAL ONE (08:25)
--- NOTE | 2017-01-07 08:39 | PDHPUP ---
History & Physical Update H&P update statement: This history and physical update is based on an assessment of the patient which was completed after admission or registration (within 24 hours), but prior to the surgery/procedure. H&P update: H&P reviewed & patient examined, no change in patient's condition since H&P completed
--- NOTE | 2017-01-07 09:58 | POSTANESTH ---
Post Anesthetic Evaluation Cardiovascular Status: Normal, Stable Respiratory Status: Normal, Stable Level of Consciousness/Mental Status: Mildly Sleepy, Arousable Pain Control: Adequate, Prn Tx Ordered Nausea/Vomiting Control: Adequate, Prn Tx Ordered Complications Possibly Related to Anesthesia: None Noted
--- NOTE | 2017-01-07 09:59 | PDANEPAE ---
ANE Past Medical History - Pulmonary History Hx Oxygen in Use at Home: No Hx Sleep Apnea: Yes - Endocrine History Hx Diabetes: Yes - Chronic Pain History Chronic Pain: No ANE Review of Systems Review of Systems: ANE Patient History - Allergies Allergies/Adverse Reactions: carvedilol [From Coreg] Allergy (Unknown, Verified 06/09/16 10:56) meperidine HCl [From Demerol] Allergy (Unknown, Verified 06/09/16 10:56) metronidazole [From Flagyl] Allergy (Unknown, Verified 06/09/16 10:56) midazolam HCl [From Versed] Allergy (Unknown, Verified 06/09/16 10:56) fentanyl Allergy (Verified 01/07/17 07:53) pneumococcal vaccine Allergy (Verified 01/07/17 07:53) FLU VACCINE Allergy (Uncoded 01/07/17 07:53) - Home Medications Home Medications: Alendronate Sodium [Fosamax 70 MG (*)] 70 mg PO TH@0800 06/09/16 [Last Taken 04/16] azaTHIOprine [Imuran 50 mg (*)] 200 mg PO DAILY 06/09/16 [Last Taken 09/04/16] Bupropion HCl [Bupropion HCl Sr] 100 mg PO DAILY 08/07/16 [Last Taken 09/04/16] Furosemide [Lasix 40 MG (*)] 40 mg PO DAILY 08/07/16 [Last Taken 09/04/16] Herbals/Supplements -Info Only 1 ea PO DAILY 08/07/16 [Last Taken Unknown] Insulin Pump, Patient Own 1 ea MISC AD 08/07/16 [Last Taken 08/07/16] Latanoprost 0.005% [Xalatan 0.005% (*)] 1 drops EACHEYE HS 08/07/16 [Last Taken 09/03/16] Loratadine 10 mg PO DAILY 08/07/16 [Last Taken 09/04/16] Multivitamins [Multivitamin (*)] 1 each PO DAILY@1800 08/07/16 [Last Taken 09/03] predniSONE 10 mg PO Q2D 08/07/16 [Last Taken 09/03/16] Cholecalciferol Vit D3 [Vitamin D3 2000 units tab (OTC)] 2,000 units PO DAILY [Last Taken 09/04/16] Naftifine HCl [Naftin] 1 ata TP DAILY PRN 09/04/16 [Last Taken Unknown] Apixaban [Eliquis] 5 mg PO BID 01/07/17 [Last Taken Unknown] Citalopram Hydrobromide [Celexa] 40 mg PO DAILY 01/07/17 [Last Taken Unknown] Glucosamine/Chondroitin [Glucosamine/Chondroitin (*)] 1 each PO BID 01/07/17 [ Last Taken Unknown] Metoprolol Succinate Xr [Toprol Xl 25 mg (*)] 25 mg PO DAILY 01/07/17 [Last Taken Unknown] - Smoking Hx Smoking Status: Never smoked ANE Labs/Vital Signs - Vital Signs Height: 178 cm Weight: 79.4 kg ANE Physical Exam - Airway Neck exam: decreased ROM, spinal fusion, short neck Mallampati Score: Class 3 Mouth exam: normal dental/mouth exam, green - Pulmonary Pulmonary: no respiratory distress, no rales or rhonchi, reduced air movement - Cardiovascular Cardiovascular: irregularly irregular - ASA Status ASA Status: IV ANE Anesthesia Plan Anesthesia Plan: MAC
--- NOTE | 2017-01-08 22:17 | ECHO ---
[email or web address] [address] [address] Main: [phone] Fax: Transesophageal Echocardiography Name: RISA HOLLAND MR#: [id number] Study Date: 01/07/2017 Study Time: 08:16 AM Date of : 1945 Age: 71 year(s) Height: ( ) Weight: ( ) BSA: Gender: Male Examination: AKIN Indication: Bicuspid AV; possible MV thrombus Image Quality: Contrast: Requested by: German Payne Heart Rate: Rhythm: BP: / Procedure Staff Society Reporter: Geeta Minor Reading Physician: German Payne Requesting Provider: German Payne AKIN Exam Details Conclusions: Moderate concentric LV hypertrophy. The ejection fraction is visually estimated to be 50 %. No thrombus is noted in the left atrium. No thrombus in left appendage. Mild mitral valve regurgitation is present. There is a small focal thickening of mitral annular calcification on the anterior leaflet. . Aortic Valve: Bicuspid aortic valve. Mild aortic valve regurgitation is present. Severe calcific aortic valve stenosis. The peak aortic velocity was found in the apical window with pedoff; max velocity 4.1m/sec, 50/66mmHg for mean and max pressure gradients.. Mildly dilated. AoArch: 4.0 cm , Mildly dilated. Pt has been scheduled to see Dr. Gonsales Measurements: Chambers Valvular Assessment AV/MV Valvular Assessment TV/PV Normal Normal Normal Name Value Range Name Value Range Name Value Range LVOTd 2.6 cm 2.6 cm mm AV Vmax: 3.74 m/s (1 m/s-1.7 Visual EF: 50 % m/s) AV maxP mmHg ( - ) AV meanP mmHg ( - ) Patient: RISA HOLLAND Study Date: 01/07/2017 Page 1 of 2 08:16 AM Additional Measurements: Additional Vessels Name Value Ao Ascendin.8 cm Ao Arch: 4.0 cm Findings: Left Ventricle: Normal size left ventricle. Moderate concentric LV hypertrophy. The ejection fraction is visually estimated to be 50 %. Left Atrium: No thrombus is noted in the left atrium. Left Atrial Appendage: No thrombus in left appendage. Mitral Valve: Mild mitral valve regurgitation is present. There is a small focal thickening of mitral annular calcification on the anterior leaflet. . Aortic Valve: Bicuspid aortic valve. Moderate aortic cusp calcification is present. Mild aortic valve regurgitation is present. Severe calcific aortic valve stenosis. The peak aortic velocity was found in the apical window with pedoff; max velocity 4.1m/sec, 50/66mmHg for mean and max pressure gradients.. Tricuspid Valve: The tricuspid valve is normal in appearance and function. Trivial tricuspid valve regurgitation. Aorta: Mildly dilated. AoArch: 4.0 cm , Mildly dilated. Pericardium: No pericardial effusion. l1n (No Signature Object) Patient: RISA HOLLAND Study Date: 01/07/2017 Page 2 of 2 08:16 AM [id number]
== END 2017-01-07 10:11 | disposition home or self-care (01) ==
LOC: FCATH 06:47
PROVIDERS: ATTEND Internal Medicine Cardiovascular Disease
PROC: B245ZZ4 Ultrasonography of Left Heart, Transesophageal (ICD-10-PCS; principal; 2017-01-07)
DX: Q23.1 Congenital insufficiency of aortic valve (principal); I34.0 Nonrheumatic mitral (valve) insufficiency; R93.1 Abnormal findings on diagnostic imaging of heart and coronary circulation; I50.22 Chronic systolic (congestive) heart failure; I42.9 Cardiomyopathy, unspecified; I48.2 Chronic atrial fibrillation; G47.33 Obstructive sleep apnea (adult) (pediatric); F32.9 Major depressive disorder, single episode, unspecified; E11.9 Type 2 diabetes mellitus without complications; Z79.01 Long term (current) use of anticoagulants; Z79.4 Long term (current) use of insulin; Z95.0 Presence of cardiac pacemaker
CPT/HCPCS: J2250; J2704

== ENCOUNTER → 2017-01-29 | Outpatient (CLI) | payer OTHER, MEDICARE ==
--- NOTE | 2017-01-07 08:42 | PDANEPAE ---
ANE Past Medical History - Pulmonary History Hx Oxygen in Use at Home: No Hx Sleep Apnea: Yes - Endocrine History Hx Diabetes: Yes - Chronic Pain History Chronic Pain: No ANE Review of Systems Review of Systems: ANE Patient History - Allergies Allergies/Adverse Reactions: carvedilol [From Coreg] Allergy (Unknown, Verified 06/09/16 10:56) meperidine HCl [From Demerol] Allergy (Unknown, Verified 06/09/16 10:56) metronidazole [From Flagyl] Allergy (Unknown, Verified 06/09/16 10:56) midazolam HCl [From Versed] Allergy (Unknown, Verified 06/09/16 10:56) fentanyl Allergy (Verified 01/07/17 07:53) pneumococcal vaccine Allergy (Verified 01/07/17 07:53) FLU VACCINE Allergy (Uncoded 01/07/17 07:53) - Home Medications Home Medications: Alendronate Sodium [Fosamax 70 MG (*)] 70 mg PO TH@0800 06/09/16 [Last Taken 04/16] azaTHIOprine [Imuran 50 mg (*)] 200 mg PO DAILY 06/09/16 [Last Taken 09/04/16] Bupropion HCl [Bupropion HCl Sr] 100 mg PO DAILY 08/07/16 [Last Taken 09/04/16] Furosemide [Lasix 40 MG (*)] 40 mg PO DAILY 08/07/16 [Last Taken 09/04/16] Herbals/Supplements -Info Only 1 ea PO DAILY 08/07/16 [Last Taken Unknown] Insulin Pump, Patient Own 1 ea MISC AD 08/07/16 [Last Taken 08/07/16] Latanoprost 0.005% [Xalatan 0.005% (*)] 1 drops EACHEYE HS 08/07/16 [Last Taken 09/03/16] Loratadine 10 mg PO DAILY 08/07/16 [Last Taken 09/04/16] Multivitamins [Multivitamin (*)] 1 each PO DAILY@1800 08/07/16 [Last Taken 09/03] predniSONE 10 mg PO Q2D 08/07/16 [Last Taken 09/03/16] Cholecalciferol Vit D3 [Vitamin D3 2000 units tab (OTC)] 2,000 units PO DAILY [Last Taken 09/04/16] Naftifine HCl [Naftin] 1 ata TP DAILY PRN 09/04/16 [Last Taken Unknown] Apixaban [Eliquis] 5 mg PO BID 01/07/17 [Last Taken Unknown] Citalopram Hydrobromide [Celexa] 40 mg PO DAILY 01/07/17 [Last Taken Unknown] Glucosamine/Chondroitin [Glucosamine/Chondroitin (*)] 1 each PO BID 01/07/17 [ Last Taken Unknown] Metoprolol Succinate Xr [Toprol Xl 25 mg (*)] 25 mg PO DAILY 01/07/17 [Last Taken Unknown] - Smoking Hx Smoking Status: Never smoked ANE Physical Exam - Airway Neck exam: short neck Mallampati Score: Class 3 Mouth exam: normal dental/mouth exam - Pulmonary Pulmonary: no respiratory distress, no rales or rhonchi, reduced air movement - Cardiovascular Cardiovascular: irregularly irregular, carotid bruit - ASA Status ASA Status: IV ANE Anesthesia Plan Anesthesia Plan: MAC
[~2017-01-29] MED LIST: ALBUTEROL 3 ML DEYVIAL IH PRN; NALOXONE HCL 0.4 MG/ML INJ IVP PRN
== END ==
LOC: FIMAGING 10:10
PROVIDERS: ATTEND Internal Medicine
DX: M81.0 Age-related osteoporosis without current pathological fracture (principal); E24.9 Cushing's syndrome, unspecified; E11.9 Type 2 diabetes mellitus without complications

== ENCOUNTER → 2017-02-17 | Outpatient (CLI) | payer OTHER, MEDICARE | LOC: BHFA 13:00 | PROVIDERS: ATTEND Internal Medicine Cardiovascular Disease | DX: I49.3 Ventricular premature depolarization (principal) ==

== ENCOUNTER 2017-02-19 06:34 | Inpatient (IN) | payer OTHER, MEDICARE ==
[~2017-02-19 06:34] MED LIST changes: +ADENOSINE 6 MG/2 ML VIAL ONE; +ALBUMIN 5% 250 ML BOTTLE IV ONE; -ALBUTEROL 3 ML DEYVIAL IH PRN; +AMINOCAPROIC ACID 5 GM/20 ML VIAL IV ONE; +AMINOCAPROIC ACID 5 GM/20 ML VIAL ONE; +AMIODARONE HCL 150 MG/3 ML VIAL ONE; +CALCIUM CHLORIDE 1 GM/10 ML INJ ONE; +CITRATE DEXTROSE SOLN 500 ML BAG MISC ONE; +CITRATE DEXTROSE SOLN 500 ML BAG ONE; +DOPamine/DEXTROSE/250 ML BAG IV ONE; +HEPARIN 10,000 UNIT/10 ML MDV ONE; +INSULIN REGULAR HUMAN 100 UNIT in NS 100 ML IV ONE; +LIDOCAINE 2% 100 MG/5 ML SYR ONE; +MAGNESIUM SULFATE 1 GM/2 ML VIAL ONE; +MANNITOL 25% 12.5 GM/50 ML VIAL IVP ONE; +MILRINONE/DEXTROSE/100 ML BAG IV ONE; +MUPIROCIN 2% 22 GM OINT NS ONE; +NA BICARBONATE 50 MEQ/50 ML VIAL ONE; -NALOXONE HCL 0.4 MG/ML INJ IVP PRN; +NOREPINEPHRINE BITARTRATE 16 MG in NS 250 ML IV ONE; +PHENYLEPHRINE HCL 50 MG in NS 250 ML IV ONE; +POTASSIUM Cl (KCl) 20 MEQ/50 ML BAG IV ONE; +PROTAMINE SULFATE 50 MG/5 ML VIAL IVP ONE; +SODIUM BICARBONATE 20 MEQ, LIDOCAINE 1% 10 ML in NORMOSOL-R 1,000 ML MISC ONE; +ceFAZolin 1 GM VIAL ONE; +ceFAZolin 2 GM/SWFI 2 GM/20 ML SYR IVP ONE; +methylPREDNISolone SOD SUCC 1 GM/8 ML VIAL ONE; +niCARdipine/NACL 200 ML IV SCH; +niCARdipine/NACL/200 ML BAG IV ONE
[2017-02-19] MEDS ORDERED: MINERAL OIL 10 ML VIAL ONE (07:36)
[2017-02-19] MEDS ORDERED: D5W LR 1,000 ML IV SCH (08:00)
--- NOTE | 2017-02-19 08:10 | PDANEPAE ---
ANE History of Present Illness here for AVR, POSS MVR, ASC ANEURYSM ANE Past Medical History - Cardiovascular History Hx Hypertension: No Hx Arrhythmias: Yes Hx Chest Pain: No Hx Coronary Artery / Peripheral Vascular Disease: Yes Hx CHF / Valvular Disease: No Hx Palpitations: No Cardiovascular History Comment: chf. afib. aortic stenosis. mitral regurg - Pulmonary History Hx COPD: No Hx Asthma/Reactive Airway Disease: No Hx Recent Upper Respiratory Infection: No Hx Oxygen in Use at Home: No Hx Sleep Apnea: Yes Sleep Apnea Screening Result - Last Documented: Positive Pulmonary History Comment: hx of shy, not using cpap currently - Neurologic History Hx Cerebrovascular Accident: Yes Hx Seizures: No Hx Dementia: No Neurologic History Comment: chronic inflammatory demyelinating polyneuropathy. peripheral neuropathy. small stroke- pt is unaware of having or when. mild cognitive deficit in terms of short term memory - Endocrine History Hx Diabetes: Yes Endocrine History Comment: type 1 - Renal History Hx Renal Disorders: No - Liver History Hx Hepatic Disorders: No - Neurological & Psychiatric Hx Hx Neurological and Psychiatric Disorders: Yes Neurological / Psychiatric History Comment: depression- well controlled currently - Cancer History Hx Cancer: No - Congenital Disorder History Hx Congenital Disorders: No - GI History Hx Gastrointestinal Disorders: No - Other Health History Other Health History: wears glasses - Chronic Pain History Chronic Pain: No - Surgical History Prior Surgeries: pacemaker placed 08/07/16. cardiac abation. hernia repair. 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 Pacemaker Model: Quadra Allure MP Pacemaker Mode: VVIR Pacemaker Set Rate: 80 ANE Patient History - Allergies Allergies/Adverse Reactions: carvedilol [From Coreg] Allergy (Unknown, Verified 02/19/17 07:28) peripheral neuropathy attack shortly after taking meperidine HCl [From Demerol] Allergy (Unknown, Verified 02/19/17 07:28) peripheral neuropathy attack shortly after taking metronidazole [From Flagyl] Allergy (Unknown, Verified 02/19/17 07:28) peripheral neuropathy attack shortly after taking midazolam HCl [From Versed] Allergy (Unknown, Verified 02/19/17 07:28) peripheral neuropathy attack shortly after taking fentanyl Allergy (Verified 02/19/17 07:28) possibly r/t peripheral neuropathy attack shortly after taki pneumococcal vaccine Allergy (Verified 02/19/17 07:28) peripheral neuropathy attack shortly after taking FLU VACCINE Allergy (Uncoded 02/19/17 07:28) peripheral neuropathy attack shortly after taking - Home Medications Home medications: home medication list seen and reviewed Home Medications: Alendronate Sodium [Fosamax 70 MG (*)] 70 mg PO TU@0800 06/09/16 [Last Taken 09:00] azaTHIOprine [Imuran 50 mg (*)] 200 mg PO DAILY 06/09/16 [Last Taken 02/18/17 09 :00] Bupropion HCl [Bupropion HCl Sr] 100 mg PO DAILY 08/07/16 [Last Taken 02/18/17 09:00] Furosemide [Lasix 40 MG (*)] 40 mg PO DAILY 08/07/16 [Last Taken 02/18/17 09:00] Herbals/Supplements -Info Only 1 ea PO DAILY 08/07/16 [Last Taken 02/12/17] Insulin Pump, Patient Own 1 ea MISC AD 08/07/16 [Last Taken 08/07/16] Latanoprost 0.005% [Xalatan 0.005% (*)] 1 drops EACHEYE HS 08/07/16 [Last Taken 02/18/17 22:00] Loratadine 10 mg PO DAILY 08/07/16 [Last Taken 02/18/17 09:00] Multivitamins [Multivitamin (*)] 1 each PO DAILY@1800 08/07/16 [Last Taken 02/18 09:00] predniSONE 10 mg PO Q2D@21 08/07/16 [Last Taken 02/18/17 09:00] Cholecalciferol Vit D3 [Vitamin D3 2000 units tab (OTC)] 2,000 units PO DAILY [Last Taken 02/12/17] Naftifine HCl [Naftin] 1 ata TP DAILY PRN 09/04/16 [Last Taken 02/18/17 09:00] Apixaban [Eliquis] 5 mg PO BID 01/07/17 [Last Taken 02/14/17] Citalopram Hydrobromide [Celexa] 40 mg PO DAILY 01/07/17 [Last Taken 02/18/17 09 :00] Glucosamine/Chondroitin [Glucosamine/Chondroitin (*)] 1 each PO BID 01/07/17 [ Last Taken 02/12/17] Metoprolol Succinate Xr [Toprol Xl 25 mg (*)] 25 mg PO DAILY 01/07/17 [Last Taken 02/18/17 09:00] Enoxaparin [Lovenox 80 MG (*)] 80 mg SQ BID 02/18/17 [Last Taken 02/18/17 09:00] guaiFENesin [Mucinex 600 MG (*)] 600 mg PO BID 02/18/17 [Last Taken 02/18/17 09: 00] - NPO status NPO Status: no food or drink >8 hours NPO Since - Liquids (Date): 02/18/17 NPO Since - Liquids (Time): 22:30 NPO Since - Solids (Date): 02/18/17 NPO Since - Solids (Time): 22:30 - Anes Hx Anes Hx: no prior problems - Smoking Hx Smoking Status: Never smoked - Family Anes Hx Family Hx Anesthesia Complications: none ANE Labs/Vital Signs - Vital Signs Blood Pressure: 114/74 Heart Rate: 70 Respiratory Rate: 16 O2 Sat (%): 98 Height: 177.8 cm Weight: 78.1 kg ANE Physical Exam - Airway Neck exam: FROM Mallampati Score: Class 1 Mouth exam: normal dental/mouth exam - Pulmonary Pulmonary: no respiratory distress - Cardiovascular Cardiovascular: regular rate and rhythym - ASA Status ASA Status: IV ANE Anesthesia Plan Anesthesia Plan: general endotracheal anesthesia Lines/Monitors: arterial line, central line, AKIN
[2017-02-19] MEDS ORDERED: fentaNYL 250 MCG/5 ML INJ ONE (08:31)
[2017-02-19] MEDS ORDERED: PROPOFOL/EMULSION 500 MG/50 ML BOTTLE IV ONE (08:32)
[2017-02-19] MEDS ORDERED: HYDROmorphONE/DILAUDID 2 MG/ML INJ ONE ×4 (08:38→16:11)
[2017-02-19] MEDS ORDERED: KETAMINE 100 MG/10 ML SYR ONE (08:38)
[2017-02-19] MEDS ORDERED: MAGNESIUM SULF 2 GM/WATER 50 ML BAG IV ONE (10:24)
[2017-02-19] MEDS ORDERED: ALBUMIN 5% 250 ML BOTTLE IV ONE ×2 (10:25→17:36)
[2017-02-19] MEDS ORDERED: PROTAMINE SULFATE 50 MG/5 ML VIAL IVP ONE ×2 (13:17→16:23)
[2017-02-19] MEDS ORDERED: LIDOCAINE 2% 100 MG/5 ML SYR ONE (15:17)
[2017-02-19] MEDS ORDERED: MAGNESIUM SULFATE 1 GM/2 ML VIAL ONE (15:18)
[2017-02-19] MEDS ORDERED: HEPARIN 10,000 UNIT/10 ML MDV ONE (15:55)
[2017-02-19] MEDS ORDERED: MAGNESIUM HYDROXIDE 30 ML UDCUP PO PRN (18:02)
[2017-02-19] MEDS ORDERED: ACETAMINOPHEN 325 MG TAB PO PRN (18:02)
[2017-02-19] MEDS ORDERED: MEPERIDINE 25 MG/ML SYR IVP PRN (18:02)
[2017-02-19] MEDS ORDERED: D50W 25 GM/50 ML SYR IVP PRN (18:02)
[2017-02-19] MEDS ORDERED: HYDROCODONE/APAP 5/325 TAB PO PRN (18:02)
[2017-02-19] MEDS ORDERED: SODIUM CL NASAL 45 ML BTL EACHNARE PRN (18:02)
[2017-02-19] MEDS ORDERED: ACETAMINOPHEN 650 MG SUPP PR PRN (18:02)
[2017-02-19] MEDS ORDERED: PANTOPRAZOLE SODIUM 40 MG VIAL IVP ONE ×2 (18:02→21:15)
[2017-02-19] MEDS ORDERED: LACTULOSE 20 GM/30 ML UDCUP PO PRN (18:02)
[2017-02-19] MEDS ORDERED: BISACODYL 10 MG SUPP PR PRN (18:02)
[2017-02-19] MEDS ORDERED: ONDANSETRON DISINTEGRATING 4 MG TAB PO PRN (18:02)
[2017-02-19] MEDS ORDERED: MAGNESIUM SULF 2 GM/WATER 50 ML IV ONE (18:02)
[2017-02-19] MEDS ORDERED: ALBUMIN 5% 250 ML IV PRN (18:02)
[2017-02-19] MEDS ORDERED: CEPACOL LOZENGE PO PRN (18:02)
[2017-02-19] MEDS ORDERED: NS 1,000 ML IV SCH (18:15)
--- NOTE | 2017-02-19 18:27 | GOP ---
[f rep st] OPERATIVE REPORT DATE OF OPERATION: 02/19/2017 SURGEON: Ishaan Gonsales DO TWINE WINDER: Kavya Cortez ANESTHESIOLOGIST: Randy Isaac MD. PREOPERATIVE DIAGNOSIS: Severe aortic stenosis, ascending aortic aneurysm, dilated cardiomyopathy, moderate mitral insufficiency, and permanent atrial fibrillation. POSTOPERATIVE DIAGNOSIS: Severe aortic stenosis, ascending aortic aneurysm, dilated cardiomyopathy, moderate mitral insufficiency, and permanent atrial fibrillation. PROCEDURE PERFORMED: 1. Aortic root replacement with a #23 freestyle valve. 2. Left atrial appendage ligation with AtriClip. 3. Mitral valve repair with a #34 Physio ring. 4. Debridement of mitral valve. FINDINGS: DESCRIPTION OF PROCEDURE: Patient was brought to the operating room intubated and monitoring lines were placed. Intraoperative transesophageal echo revealed at least 2+ mitral insufficiency with multiple jets and a myxomatous-appearing valve. Because of his cardiomyopathy and congestive heart failure history, I felt that we should repair the mitral valve. He was also noted to have a foreign body on the anterior leaflet, likely calcified, and he was found to have critical aortic stenosis. Biventricular function was moderately impaired. His sternotomy was performed. The patient was heparinized. He was cannulated in the transverse arch. The ascending aorta measured 5.2 cm in the mid segment. All cardiac structures were markedly enlarged, as well as his pulmonary artery and all 4 chambers. Bicaval cannulae were placed, cardiopulmonary bypass was begun, and cardioplegic arrest was attained with antegrade cardioplegia, retrograde cardioplegia, topical hypothermia, and systemic cooling. Initially, the mitral valve was exposed through the right superior pulmonary vein. An annuloplasty ring was sutured with interrupted 2-0 Tycron's with good apposition of anterior and posterior leaflets and no regurgitation with distention. The left atrium was closed in a standard fashion. We then placed a #50 AtriClip on the left atrial appendage flush with the left atrial wall. We then excised the ascending aorta from the innominate artery to the sinotubular junction. The patient's sinuses are actually normal in size. He has severely calcified true bicuspid valve. The valve was excised. The anulus was debrided. A 23 mm Brown valve was sutured in a supra-annular position with interrupted 2-0 Tycron pledgeted mattress sutures without difficulty. We then performed end-to-end anastomosis proximally and distally with a 32 mm graft with several reinforcement sutures. BioGlue was applied externally. Cross-clamp was removed. Bleeding was controlled with a few additional sutures. Patient was kept in Trendelenburg, de-aired, and weaned from bypass. Heparin was reversed with protamine. After giving heparin, Anesthesia felt that there may be a perivalvular leak. It was confirmed with Cardiology, and although it was small, I was reluctant to leave it. The anulus was quite heavily calcified and extreme saddle shape from true bicuspid anatomyhad been debrided aggressively. We then re-cannulated, and after heparinizing the patient, reopened the aortic graft and found that the valve was well-seated. I found no evidence of any kind of communication between the ventricle and aorta, but because of uncertainty, I removed the valve and pledgets, placed a 2nd 23 mm valve taking deeper wider bites. The patient had a pacemaker so I did not have to worry about conduction block. The valve was sutured in place, carefully tied in position, tested for any leak around it. Aortotomy was closed. Cross-clamp was removed with suction on the ascending aortic vent and LV sump. He was easily weaned from bypass. Again, that persistent defect was noted, confirmed with Cardiology. At this point they thought there might be a problem with the valve itself. It was actually in the exact same spot between the left and right commissure. I then re-heparinized the patient, went back on bypass for a 3rd time. At this point, I decided to perform a root replacement. I excised the valve and all annular sutures and pledgets. I found no defect. The anulus in that area was actually fairly healthy. I then used interrupted 2-0 Tycron sutures put through a 23 mm freestyle graft, rotated 120 degrees, tied over felt strip. We then performed aortotomy and grafted the left main coronary artery without difficulty to that site on the pigss non-coronary cusp, but rotated to become the patient's left cusp. We then did the same on the right. They were performed without any traction or distortion. The aortotomy was closed with a continuous running 4-0 Prolene suture. The cross-clamp was removed with suction on the ascending aortic vent and LV sump. He was de-aired through the apex, as well. When no further air was identified, he was easily weaned from bypass. Transesophageal echo revealed no persistent leak or any abnormality with the valve itself and no mitral regurgitation. Biventricular function remained preserved. The heparin was reversed with protamine.A coagulopathy resolved with products The cannula was removed and oversewn. Patient had a permanent pacemaker, so no pacing wires were placed. The thymic fat and pericardium were closed over 1 pleural and 2 mediastinal drains. The chest was closed in standard fashion. The patient was returned to ICU in stable condition. /[id number]/MODL MTDD
[2017-02-19] MEDS ORDERED: INSULIN REGULAR HUMAN 100 UNIT in NS 100 ML IV SCH (18:30)
--- NOTE | 2017-02-19 18:32 | POSTANESTH ---
Post Anesthetic Evaluation Cardiovascular Status: Normal, Stable (ON DOPAMINE GTT) Respiratory Status: Normal, Stable (INTUBATED), Requires Airway Assist Level of Consciousness/Mental Status: Unconscious Pain Control: Adequate, Prn Tx Ordered Nausea/Vomiting Control: Adequate, Prn Tx Ordered Complications Possibly Related to Anesthesia: None Noted
[2017-02-19 19:51] LABS: CALCULATED OXYGEN SATURATION 99 % (92-95); O2 CONCENTRATIION 100 % (0-100)
[2017-02-19] MEDS: MUPIROCIN 2% 22 GM OINT NS SCH (20:53)
[2017-02-19] MEDS: SENNOSIDES/DOCUSATE SODIUM TAB PO SCH (20:53)
[2017-02-19 21:18] LABS: BASE EXCESS -2.9 mEq/L (-2.5-2.5); BICARBONATE 23 mEq/L (22-26); MEASURED OXYGEN SATURATION 97 % (92-95); PCO2 47 mmHg (34-38); PO2 91 mmHg (65-75); TCO2 25 mEq/L (23-27)
[2017-02-19 21:22] LABS: END TIDAL CO2 38; O2 CONCENTRATIION 50 % (0-100); P/F RATIO 182 RATIO; PATIENT RATE 12; SIMV YES
[2017-02-19 21:23] LABS: PRESSURE SUPPORT 7
[2017-02-19] MEDS ORDERED: NALOXONE HCL 0.4 MG/ML INJ ONE (21:32)
[2017-02-19] MEDS ORDERED: NALOXONE HCL 0.4 MG/ML INJ IVP ONE (21:45)
[2017-02-19] MEDS: ceFAZolin 2 GM/DEXTROSE 100 ML IV SCH (21:45)
[2017-02-19] MEDS: METOCLOPRAMIDE 10 MG/2 ML VIAL IVP PRN (21:50)
[2017-02-19] MEDS: ONDANSETRON 4 MG/2 ML VIAL IVP PRN (21:50)
[2017-02-19] MEDS: POTASSIUM Cl (KCl) 50 ML IV PRN ×2 (23:18→23:19)
[2017-02-20] MEDS: POTASSIUM Cl (KCl) 50 ML IV PRN (02:14)
[2017-02-20] MEDS: ceFAZolin 2 GM/DEXTROSE 100 ML IV SCH ×3 (05:07→21:23)
[2017-02-20 05:11] LABS: BASE EXCESS -0.2 mEq/L (-2.5-2.5); BICARBONATE 24 mEq/L (22-26); END TIDAL CO2 31; MEASURED OXYGEN SATURATION 99 % (92-95); O2 CONCENTRATIION 40 % (0-100); P/F RATIO 303 RATIO; PATIENT RATE 14; PCO2 39 mmHg (34-38); PO2 121 mmHg (65-75); PRESSURE SUPPORT 10; SIMV YES; TCO2 25 mEq/L (23-27)
[2017-02-20 05:13] LABS: % IMMATURE GRANULYOCYTES 0.6 % (0.0-1.1); ABSOLUTE IMMATURE GRANULOCYTES 0.05 10^3/uL (0.00-0.10); ADD DIFF? NO; ADD MORPH? NO; ADD SCAN? NO; ATYPICAL LYMPHOCYTE FLAG 0 (0-99); FRAGMENT RBC FLAG 0 (0-99); HEMATOCRIT 22.5 % (40.0-51.0); HEMOGLOBIN 8.2 g/dL (13.7-17.5); LEFT SHIFT FLG 20 (0-99); LIPEMIA HEMOLYSIS FLAG 90 (0-99); MEAN CELL HEMOGLOBIN 39.8 pg (27.9-34.1); MEAN CELL HEMOGLOBIN CONCENTR. 36.4 g/dL (32.4-36.7); MEAN CELL VOLUME 109.2 fL (81.5-99.8); MEAN PLATELET VOLUME 9.5 fL (8.7-11.7); PLATELET CLUMPS FLAG 0 (0-99); PLATELET COUNT 54 10^3/uL (150-400); RED BLOOD CELL COUNT 2.06 10^6/uL (4.40-6.38); RED CELL DISTRIBUTION WIDTH 15.2 % (11.5-15.2)
[2017-02-20] MEDS: METOCLOPRAMIDE 10 MG/2 ML VIAL IVP PRN (05:52)
[2017-02-20] MEDS: ONDANSETRON 4 MG/2 ML VIAL IVP PRN (05:52)
[2017-02-20 06:01] LABS: CALCIUM 7.7 mg/dL (8.5-10.4); CARBON DIOXIDE 27 mEq/l (22-31); CHLORIDE 114 mEq/L (97-110); CREATININE 0.6 mg/dL (0.7-1.3); GLOMERULAR FILTRATION RATE > 60; GLUCOSE 111 mg/dL (70-100); SODIUM 147 mEq/L (134-144)
[2017-02-20 06:21] LABS: ANION GAP 6 mEq/L (8-16); POTASSIUM 4.8 mEq/L (3.5-5.2)
[2017-02-20] MEDS ORDERED: FUROSEMIDE 40 MG/4 ML VIAL IVP ONE ×2 (06:31→19:18)
[2017-02-20] MEDS ORDERED: KETOROLAC 30 MG/1 ML SDV IVP PRN ×2 (06:34→08:45)
--- NOTE | 2017-02-20 08:07 | SOAPPROG ---
SOAP Progress Note Assessment/Plan: Assessment: Plan: 02/20/17 08:05 extubated, HD stable CXR/lab noted needs 2 prbc, follow platelets, likely consumption given complicated intraop course orders Objective: Vital Signs Temp Pulse Resp BP Pulse Ox 37.4 C 75 17 109/58 L 100 02/20/17 07:00 02/20/17 07:00 02/20/17 07:00 02/20/17 07:00 02/20/17 07:00 Laboratory Results 02/20/17 05:05 02/20/17 05:05 02/19/17 02/20/17 02/21/17 05:59 05:59 05:59 Intake Total 2089 Output Total 3920 45 Balance -1831 -45 ICD10 Worksheet Patient Problems: Problems Problem Status Onset Atrial fibrillation Acute Bicuspid aortic valve Acute CHF (congestive heart failure), NYHA class II Acute Diabetes Acute LBBB (left bundle branch block) Acute Neuropathy Acute Thoracic aneurysm Acute Chronic inflammatory demyelinating neuropathy Chronic 10/21/13
[2017-02-20] MEDS ORDERED: APIXABAN 2.5 MG TAB PO SCH (09:00)
[2017-02-20] MEDS: SENNOSIDES/DOCUSATE SODIUM TAB PO SCH ×2 (09:00→21:20)
[2017-02-20] MEDS ORDERED: NON-FORMULARY NEW DRUG (Citalopram Hydrobromide [Celexa] 40 MG) PO SCH (09:00)
[2017-02-20] MEDS: MUPIROCIN 2% 22 GM OINT NS SCH ×2 (09:25→22:05)
--- NOTE | 2017-02-20 15:01 | GCON ---
[f rep st] CONSULTATION PULMONARY CRITICAL CARE CONSULTATION. DATE OF CONSULTATION: 02/20/2017 REASON FOR CONSULTATION: Intensive care unit and medical management following open heart surgery. HISTORY OF PRESENT ILLNESS: The patient is a pleasant 71-year-old who had open heart surgery, second anthony to severe aortic stenosis. This was associated with an ascending aortic aneurysm, mitral insuffi ciency, atrial fibrillation, and a dilated cardiomyopathy. He ended up with an aortic replacement, a long with an aortic valve, mitral valve repair. and left atrial appendage ligation. Median sternotom y was done. The patient was on-and-off the pump several times. He was returned to the intensive car e unit in stable condition postoperatively, but on the ventilator. He was extubated approximately 12 hours later and has done well. He is on low-flow oxygen by nasal cannula. Vital signs are stable. CVP is approximately 12. He remains on low-dose dopamine. He is paced. He has no complaints other than some expected pain. PAST MEDICAL HISTORY: Has multiple medical problems. This includes chronic inflammatory demyelinati ng polyneuropathy for which he takes prednisone and Imuran, insulin-dependent diabetes, depression, c ardiomyopathy, chronic atrial fibrillation with a pacemaker, obstructive sleep apnea, a history of co gnitive impairment, and fluid retention requiring Lasix. PAST SURGICAL HISTORY: Herniorrhaphy, cataracts. ALLERGIES: Drug allergies, multiple, including fentanyl, Demerol, carvedilol, Flagyl, Fluzone, Verse d, and Pneumovax. FAMILY HISTORY: Diabetes. SOCIAL HISTORY: The patient lives at a skilled nursing in an independent living situation. He is a nev er smoker. He drinks alcohol occasionally. Drugs negative. He has a sister locally, who may be his medical [id number]. 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 REVIEW OF SYSTEMS: Difficult to obtain at the current time. HOME MEDICATIONS: Included prednisone, Imuran, Mucinex, Naftin, metoprolol, loratadine, insulin by p p, Lasix, enoxaparin twice a day bridge for Eliquis, Celexa, bupropion, and Fosamax. PHYSICAL EXAMINATION: GENERAL: Reveals a pleasant gentleman who is lying in bed. He appears pale. Responses are appropriate, but slow. VITAL SIGNS: Blood pressure is 135/66, heart rate 80 and pace d. On 2 L, saturations are 100%. Respiratory rate is 16. He is afebrile. HEENT/NECK: Unremarkabl e for lymphadenopathy or thyromegaly. Pupils are equal. There is mild jugular venous distention. C BATTERY HAND is in the 10-18 range. CHEST: Clear anteriorly. Breath sounds are diminished at the bases. The re are some rales at the left base. No rhonchi. HEART: Regular, paced. A systolic murmur is prese nt. Valves sound fine. ABDOMEN: Soft, nontender. Bowel sounds are present. : A Pena catheter is in place with good urine output. Output is greater than input since surgery. TUBES: Chest/medi astinal tubes are in place. A right subclavian central line is present. NEUROLOGIC: Examination is intact. He moves all extremities equally and reports good sensation. EXTREMITIES: There is no low er extremity edema. DATABASE: Postoperative x-rays showed lines and tubes to be in good position. The cardiac silhouett e is enlarged. There is some increased markings bilaterally consistent with vascular plethora. Ther e are no infiltrates, no obvious effusions. White blood cells 8500, hematocrit. 22.5, platelets are 54,000. Sodium is 146, potassium 4.7, BUN 13 with a creatinine of 0.7. Glucoses on an insulin drip and on the patient's pump range between appro ximately 150 and 165. ASSESSMENT: 1. Status post open heart surgery, with aortic valve and root replacement, and mitral valve repair a s outlined above. He is doing well postoperatively. He is on low-dose dopamine, intermittent Lasix for fluid retention. Hemodynamics and oxygenation are stable. 2. History of cardiomyopathy/congestive heart failure/chronic atrial fibrillation. 3. History of chronic inflammatory demyelinating polyradiculoneuropathy, immunosuppression. 4. Diabetes mellitus. He is on insulin drip, and in addition, has restarted his insulin pump per hi s request. Blood sugars are well controlled at this time. 5. History of multiple medical problems, as outlined above. These are stable. 6. Acute blood-loss anemia. He has received 1 unit of packed red cells, also unit of platelets. 7. Prophylaxis. He is on pantoprazole. No deep venous thrombosis prophylaxis currently, other than sequential compression devices. He is also on anti-platelet agents. PLAN: The patient will be supported in the intensive care unit. Current medications will be continu ed. Chest x-ray and laboratory will be followed intermittently. Glucoses will be monitored per prot ocols and insulin adjusted appropriately. His usual immunosuppressants will be maintained, including prednisone. There is no indication for stress steroid coverage at this point in time. He will be m obilized as tolerated. Lasix diuresis will be maintained. His further plans and recommendations will be made based on his progress over the next 12-24 hours. /[id number]/MODL
--- NOTE | 2017-02-20 16:35 | ASMTCMCOM ---
CM Note CM Note Notes: Pt. is a 71-year-old man admitted for cardiac surgery. Per ICU rounds, Pt. is having a difficult time processing information at this time. Go slowly. Pt. has a hx. of depression. Pt. [facility]. Per ICU rounds, sister Alexus is MDPOA, but in electronic record, sister Camilla is MDPOA. PT and OT ordered. Await recommendations to guide d/c planning process. CM to follow for d/c POC. Date Signed: 02/20/2017 04:34 PM Electronically Signed By:Olga Salas LCSW
[2017-02-20] MEDS ORDERED: ASPIRIN 81 MG CHEWABLE TAB TUBE PRN (18:02)
[2017-02-20] MEDS: azaTHIOprine 50 MG TAB PO SCH (18:27)
[2017-02-20] MEDS: ASPIRIN 81 MG CHEWABLE TAB PO SCH (18:30)
[2017-02-20] MEDS: CITALOPRAM 20 MG TAB PO SCH (18:30)
[2017-02-20] MEDS: buPROPion SR 100 MG TAB PO SCH (18:30)
[2017-02-20] MEDS: KETOROLAC 30 MG/1 ML SDV IVP PRN (19:15)
[2017-02-20] MEDS: guaiFENesin 600 MG TAB.ER PO SCH (21:20)
[2017-02-20] MEDS: PANTOPRAZOLE SODIUM 40 MG TAB PO SCH (21:20)
[2017-02-20] MEDS: predniSONE 10 MG TAB PO SCH (21:20)
[2017-02-20] MEDS: traMADol 50 MG TAB PO PRN (21:23)
[2017-02-20] MEDS: LATANOPROST 0.005% 2.5 ML OPHT DROPS EACHEYE SCH (21:24)
[2017-02-21] MEDS: KETOROLAC 30 MG/1 ML SDV IVP PRN ×3 (02:45→15:03)
[2017-02-21] MEDS: oxyCODONE IR 5 MG TAB PO PRN ×2 (02:45→12:23)
[2017-02-21 05:30] LABS: MEAN CELL HEMOGLOBIN 36.2 pg (27.9-34.1); MEAN CELL HEMOGLOBIN CONCENTR. 34.5 g/dL (32.4-36.7); MEAN CELL VOLUME 105.1 fL (81.5-99.8); RED BLOOD CELL COUNT 2.76 10^6/uL (4.40-6.38)
[2017-02-21 05:31] LABS: RED CELL DISTRIBUTION WIDTH 21.2 % (11.5-15.2)
[2017-02-21] MEDS: ceFAZolin 2 GM/DEXTROSE 100 ML IV SCH ×2 (05:35→13:36)
[2017-02-21 05:45] LABS: ANION GAP 7 mEq/L (8-16); CALCIUM 7.7 mg/dL (8.5-10.4); CARBON DIOXIDE 30 mEq/l (22-31); CHLORIDE 106 mEq/L (97-110); CREATININE 0.8 mg/dL (0.7-1.3); GLOMERULAR FILTRATION RATE > 60; GLUCOSE 196 mg/dL (70-100); POTASSIUM 4.9 mEq/L (3.5-5.2); SODIUM 143 mEq/L (134-144)
[2017-02-21] MEDS ORDERED: D50W 25 GM/50 ML SYR IVP PRN ×2 (08:12→11:23)
[2017-02-21] MEDS ORDERED: PARAMETERS MISC PRN (08:12)
[2017-02-21] MEDS ORDERED: INSULIN REGULAR HUMAN 100 UNIT/ML ONE (08:28)
[2017-02-21] MEDS: MUPIROCIN 2% 22 GM OINT NS SCH (09:20)
[2017-02-21] MEDS: traMADol 50 MG TAB PO PRN ×2 (09:24→20:24)
--- NOTE | 2017-02-21 10:44 | SOAPPROG ---
SOAP Progress Note Assessment/Plan: Assessment: Plan: 02/20/17 08:05 extubated, HD stable CXR/lab noted needs 2 prbc, follow platelets, likely consumption given complicated intraop course orders 02/21/17 10:40 doing well CXR stable lab noted transfer Objective: Vital Signs Temp Pulse Resp BP Pulse Ox 36.5 C 79 15 119/60 97 02/21/17 08:00 02/21/17 10:00 02/21/17 10:00 02/21/17 10:00 02/21/17 10:00 Laboratory Results 02/21/17 05:15 02/21/17 05:15 02/20/17 02/21/17 02/22/17 05:59 05:59 05:59 Intake Total 1055 9880 Output Total 7133 4470 Balance -1831 -1610 ICD10 Worksheet Patient Problems: Problems Problem Status Onset Atrial fibrillation Acute Bicuspid aortic valve Acute CHF (congestive heart failure), NYHA class II Acute Diabetes Acute LBBB (left bundle branch block) Acute Neuropathy Acute Thoracic aneurysm Acute Chronic inflammatory demyelinating neuropathy Chronic 10/21/13
[2017-02-21] MEDS: INSULIN REGULAR HUMAN 100 UNIT/ML SC SCH ×3 (11:29→21:22)
[2017-02-21] MEDS ORDERED: INSULIN REGULAR, HUMAN 100 UNIT/1 ML VIAL STANDARD SC SCH (11:30)
--- NOTE | 2017-02-21 11:47 | ASMTCMCOM ---
CM Note CM Note Notes: Spoke with Camilla Pinzon, patient's sister to clarify the MDPOA. Camilla states she is the MDPOA and Alexus, patient's friend is the second person listed in the paperwork. We do not have this paperwork in the medical record and Camilla said she was sure her brother would sign new forms so we can have it on record. Left a message for Josee Morrison to assist with getting new paperwork signed. CM will follow. Date Signed: 02/21/2017 11:47 AM Electronically Signed By:Asuncion Bruce LCSW
[2017-02-21] MEDS: guaiFENesin 600 MG TAB.ER PO SCH ×2 (12:00→20:27)
[2017-02-21] MEDS: azaTHIOprine 50 MG TAB PO SCH (12:07)
[2017-02-21] MEDS: CITALOPRAM 20 MG TAB PO SCH (12:08)
[2017-02-21] MEDS: ASPIRIN 81 MG CHEWABLE TAB PO SCH (12:09)
[2017-02-21] MEDS: SENNOSIDES/DOCUSATE SODIUM TAB PO SCH ×2 (12:09→20:26)
[2017-02-21] MEDS: buPROPion SR 100 MG TAB PO SCH (12:09)
--- NOTE | 2017-02-21 14:11 | ECHO ---
[email or web address] [address] [address] Main: [phone] Fax: Transthoracic Echocardiogram Name: RISA HOLLAND MR#: [id number] Study Date: 02/21/2017 Study Time: 12:35 PM Date of : 1945 Age: 71 year(s) Height: 177.8 cm (70 in.) Weight: 82.1 kg (181 lb.) BSA: 2 m2 Gender: Male Examination: Limited Echo Indication: post op Aortic root/#23 freestyle AVR/34 physio MVR/abnormal EKG Image Quality: Contrast: Requested by: Ishaan Gonsales BP: / Heart Rate: Rhythm: Indication: post op Aortic root/#23 freestyle AVR/34 physio MVR/abnormal EKG Procedure Staff Pin Inserter: Rhonda Orellana Reading Physician: Ishaan Sandoval Requesting Provider: Conclusions: Technically difficult study. No readable images to assess. . Suspect tissue edema is blunting ultrasound transmission. Some views suggest grossly normal LV systolic function but study quality is so poor that chamber sizes, valve function, and presence/absence of pericardial fluid cannot be reliably assessed. Measurements: Chambers Valvular Assessment AV/MV Valvular Assessment TV/PV Normal Normal Normal Name Value Range Name Value Range Name Value Range Continued Measurements: Findings: Exam Comments: Technically difficult study. No readable images to assess. . (No Signature Object) Patient: RISA HOLLAND Study Date: 02/21/2017 Page 1 of 1 12:35 PM [id number]
[2017-02-21] MEDS: FUROSEMIDE 40 MG TAB PO SCH (15:03)
--- NOTE | 2017-02-21 15:19 | PDINTPN ---
Runner Out Progress Note Assessment/Plan: Assessment: Status post aortic valve replacement/aortic root. Doing well. Hemodynamics stable. Ambulatory. Insulin-dependent diabetes: Glucoses remain high. He has a pump which is on a low basal rate. Being covered with sliding scale insulin a.c. and HS. Will increase coverage and follow glucoses closely. CIDP/immunosuppression - stable Acute blood-loss anemia: Hematocrit 29. No evidence of ongoing significant bleeding. Plan: Continue postop care. Increase insulin coverage. Follow glucoses. Increase mobilization as tolerated. Can likely transfer to PCU later today. Subjective: Doing well, up walking in the garcia with physical therapy on room air. Move slowly secondary to CIDP. Objective: Vital Signs Temp Pulse Resp BP Pulse Ox 36.4 C 73 18 116/75 93 02/21/17 14:59 02/21/17 14:59 02/21/17 14:59 02/21/17 14:59 02/21/17 14:59 Laboratory Results 02/21/17 05:15 02/21/17 05:15 02/20/17 02/21/17 02/22/17 05:59 05:59 05:59 Intake Total 2089 2470 Output Total 3920 3500 370 Balance -1831 -1030 -370 Laboratory Tests 02/21/17 02/21/17 02/21/17 05:15 07:45 11:05 POC Glucose 223 H 286 H Calcium 7.7 L Physical Exam - Physical Exam General Appearance: alert, no apparent distress EENT: PERRL/EOMI, other (On room air) Neck: normal inspection Respiratory: lungs clear, decreased breath sounds (At bases), other (Decreased output from chest tubes), No rales, No rhonchi Cardiac/Chest: regular rate, rhythm (Paced) Abdomen: normal bowel sounds, non-tender, soft Skin: warm/dry, pallor Extremities: No pedal edema Neuro/Psych: no motor/sensory deficits, No sensory deficit ICD10 Worksheet Patient Problems: Problems Problem Status Onset Atrial fibrillation Acute Bicuspid aortic valve Acute CHF (congestive heart failure), NYHA class II Acute Diabetes Acute LBBB (left bundle branch block) Acute Neuropathy Acute Thoracic aneurysm Acute Chronic inflammatory demyelinating neuropathy Chronic 10/21/13
--- NOTE | 2017-02-21 15:27 | ASMTCMCOM ---
CM Note CM Note Notes: 02/21/2017 Case Mangement Note PT recommending SNF rehab. Spoke w/Soila at [facility] to update on admission. [facility] anticipating pt to admit to SNF rehab. Faxed updates per Soila's request, [facility] able to take pt at d/c. Case Management d/c poc: to [facility] when medically stable. Case Management to follow. Date Signed: 02/21/2017 03:26 PM Electronically Signed By:Kandy Vieira RN
[2017-02-21] MEDS ORDERED: INSULIN PUMP, PATIENT OWN 1 EA MISC SCH (15:45)
[2017-02-21] MEDS: PANTOPRAZOLE SODIUM 40 MG TAB PO SCH (20:25)
[2017-02-21] MEDS: LATANOPROST 0.005% 2.5 ML OPHT DROPS EACHEYE SCH (20:28)
[2017-02-21] MEDS: ONDANSETRON 4 MG/2 ML VIAL IVP PRN (22:51)
[2017-02-22] MEDS: oxyCODONE IR 5 MG TAB PO PRN ×2 (00:10→20:19)
[2017-02-22] MEDS: KETOROLAC 30 MG/1 ML SDV IVP PRN (01:06)
[2017-02-22 06:10] LABS: % IMMATURE GRANULYOCYTES 0.8 % (0.0-1.1); ABSOLUTE IMMATURE GRANULOCYTES 0.07 10^3/uL (0.00-0.10); ABSOLUTE NRBC COUNT 0.02 10^3/uL (0-0.01); ADD DIFF? NO; ADD MORPH? NO; ADD SCAN? NO; ATYPICAL LYMPHOCYTE FLAG 0 (0-99); FRAGMENT RBC FLAG 0 (0-99); HEMATOCRIT 26.8 % (40.0-51.0); HEMOGLOBIN 9.4 g/dL (13.7-17.5); LEFT SHIFT FLG 10 (0-99); LIPEMIA HEMOLYSIS FLAG 90 (0-99); MEAN CELL HEMOGLOBIN 36.9 pg (27.9-34.1); MEAN CELL HEMOGLOBIN CONCENTR. 35.1 g/dL (32.4-36.7); MEAN CELL VOLUME 105.1 fL (81.5-99.8); NRBC-AUTO% 0.2 % (0.0-0.2); PLATELET CLUMPS FLAG 0 (0-99); RED BLOOD CELL COUNT 2.55 10^6/uL (4.40-6.38); RED CELL DISTRIBUTION WIDTH 19.2 % (11.5-15.2)
[2017-02-22 06:11] LABS: PLATELET COUNT 39 10^3/uL (150-400)
[2017-02-22 06:30] LABS: ANION GAP 4 mEq/L (8-16); CALCIUM 7.8 mg/dL (8.5-10.4); CARBON DIOXIDE 29 mEq/l (22-31); CHLORIDE 103 mEq/L (97-110); CREATININE 0.8 mg/dL (0.7-1.3); GLOMERULAR FILTRATION RATE > 60; GLUCOSE 216 mg/dL (70-100); POTASSIUM 4.2 mEq/L (3.5-5.2); SODIUM 136 mEq/L (134-144)
[2017-02-22 06:32] LABS: PLATELET ESTIMATE DECREASED (ADEQ)
[2017-02-22] MEDS: CITALOPRAM 20 MG TAB PO SCH (08:25)
[2017-02-22] MEDS: guaiFENesin 600 MG TAB.ER PO SCH ×2 (08:25→20:19)
[2017-02-22] MEDS: azaTHIOprine 50 MG TAB PO SCH (08:25)
[2017-02-22] MEDS: buPROPion SR 100 MG TAB PO SCH (08:25)
[2017-02-22] MEDS: FUROSEMIDE 40 MG TAB PO SCH ×2 (08:25→14:17)
[2017-02-22] MEDS: ASPIRIN 81 MG CHEWABLE TAB PO SCH (08:27)
[2017-02-22] MEDS: POTASSIUM CL 20 MEQ TAB PO SCH (08:27)
[2017-02-22] MEDS: INSULIN REGULAR HUMAN 100 UNIT/ML SC SCH ×4 (08:27→21:08)
[2017-02-22] MEDS: SENNOSIDES/DOCUSATE SODIUM TAB PO SCH ×2 (08:28→21:03)
--- NOTE | 2017-02-22 10:34 | SOAPPROG ---
SOAP Progress Note Assessment/Plan: Assessment: Plan: 02/20/17 08:05 extubated, HD stable CXR/lab noted needs 2 prbc, follow platelets, likely consumption given complicated intraop course orders 02/21/17 10:40 doing well CXR stable lab noted transfer 02/22/17 10:32 doing well VSS CXR stable scant drainage, DC tubes in am IM to assist w DM mgmt,appreciated Objective: Vital Signs Temp Pulse Resp BP Pulse Ox 36.5 C 74 18 101/60 93 02/22/17 07:32 02/22/17 07:32 02/22/17 07:32 02/22/17 07:32 02/22/17 07:32 Laboratory Results 02/22/17 05:55 02/22/17 05:55 02/21/17 02/22/17 02/23/17 05:59 05:59 05:59 Intake Total 2470 350 Output Total 3500 1130 Balance -1030 -780 ICD10 Worksheet Patient Problems: Problems Problem Status Onset Atrial fibrillation Acute Bicuspid aortic valve Acute CHF (congestive heart failure), NYHA class II Acute Diabetes Acute LBBB (left bundle branch block) Acute Neuropathy Acute Thoracic aneurysm Acute Chronic inflammatory demyelinating neuropathy Chronic 10/21/13
--- NOTE | 2017-02-22 12:53 | PDHOSCONS ---
Hospitalist Consult Hospitalist Consult: Referring physician: Dr. Gonsales Reason for consultation: Glucose mgmt This is a 71 yo male who had open heart surgery during this hospitalization and is now s/p aortic valve replacement, mitral valv repair, atrial appendage ligation. He has a long hx of IDDM and overall his glucose is well controlled in an outpatient setting. HIs last A1C on January 21 was 6.2. His pump has not been operational during this hospitalization and glucose has mostly been in the 200's. Upon review of his medical records, labs are c/w platelets of 39. These have been decreasing rather acutely. His baseline in early January is in the 200's. A HIT panel has been ordered. He has a hx of chronic AC and was recently on Lovenox for bridging therapy. No AC is currently being provided. 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 He will get a friend to assist him today. If he is able to, then this would be ideal as overall he has done a good job in managing his sugars. If he is unable to then he will have Lantus 10 units tonight -cont ISS #s/p Aortic valve replacement, mgmt per primary #Thrombocytopenia, unclear etiology: await HIT panel, recheck labs in a.m. #chronic AC, not current on any medication, cont to hold #CIDP/chronic immunosuppression: cont home meds. On home Prednisone #CHF, on diuretics BID #chronic Afib/pacemaker #ABLA, s/p PRBC transfusion. No signs of active bleeding. Monitor thank you for this consultation. We will follow along with you. Plan d/w his nurse in detail.
[2017-02-22] MEDS: CETIRIZINE 10 MG TAB PO SCH ×2 (14:17→14:21)
[2017-02-22] MEDS ORDERED: INSULIN LISPRO 100 UNIT/ML SC SCH (18:00)
[2017-02-22] MEDS ORDERED: INSULIN GLARGINE 100 UNITS/ML SYRINGE SC SCH (21:00)
[2017-02-22] MEDS: predniSONE 10 MG TAB PO SCH (21:02)
[2017-02-22] MEDS: PANTOPRAZOLE SODIUM 40 MG TAB PO SCH (21:03)
[2017-02-22] MEDS: LATANOPROST 0.005% 2.5 ML OPHT DROPS EACHEYE SCH (21:05)
[2017-02-23] MEDS: oxyCODONE IR 5 MG TAB PO PRN ×2 (01:52→21:02)
[2017-02-23 06:21] LABS: % IMMATURE GRANULYOCYTES 1.1 % (0.0-1.1); ABSOLUTE NRBC COUNT 0.03 10^3/uL (0-0.01); ADD DIFF? NO; ADD MORPH? NO; ADD SCAN? NO; ATYPICAL LYMPHOCYTE FLAG 0 (0-99); FRAGMENT RBC FLAG 0 (0-99); HEMOGLOBIN 10.2 g/dL (13.7-17.5); LEFT SHIFT FLG 10 (0-99); LIPEMIA HEMOLYSIS FLAG 90 (0-99); MEAN CELL HEMOGLOBIN 36.2 pg (27.9-34.1); MEAN CELL VOLUME 106.4 fL (81.5-99.8); MEAN PLATELET VOLUME 11.3 fL (8.7-11.7); NRBC-AUTO% 0.3 % (0.0-0.2); PLATELET CLUMPS FLAG 10 (0-99); PLATELET COUNT 50 10^3/uL (150-400); RED BLOOD CELL COUNT 2.82 10^6/uL (4.40-6.38)
[2017-02-23] MEDS ORDERED: FUROSEMIDE 40 MG/4 ML VIAL IVP ONE (08:42)
[2017-02-23] MEDS: azaTHIOprine 50 MG TAB PO SCH (09:20)
[2017-02-23] MEDS: buPROPion SR 100 MG TAB PO SCH (09:22)
[2017-02-23] MEDS: CITALOPRAM 20 MG TAB PO SCH (09:22)
[2017-02-23] MEDS: CETIRIZINE 10 MG TAB PO SCH (09:26)
[2017-02-23] MEDS: INSULIN REGULAR HUMAN 100 UNIT/ML SC SCH ×4 (09:26→21:13)
[2017-02-23] MEDS: FUROSEMIDE 40 MG TAB PO SCH ×2 (09:26→14:55)
[2017-02-23] MEDS: guaiFENesin 600 MG TAB.ER PO SCH ×2 (09:27→21:02)
[2017-02-23] MEDS: SENNOSIDES/DOCUSATE SODIUM TAB PO SCH ×2 (09:27→21:12)
[2017-02-23] MEDS: POTASSIUM CL 20 MEQ TAB PO SCH (09:27)
[2017-02-23] MEDS: ASPIRIN 81 MG CHEWABLE TAB PO SCH (09:27)
[2017-02-23] MEDS: POLYETHYLENE GLYCOL 3350 17 GM PKT PO PRN ×2 (09:30→16:49)
--- NOTE | 2017-02-23 12:34 | HOSPPROG ---
Hospitalist Progress Note Assessment/Plan: #IDDM with hyperglycemia due to malfunctioning pump -Pump has been fixed and restarted on 02/22 -expect sugars to continue to improve -Cont with ISS, no need for Lantus at this time -Overall his glucose at home have been well controlled and at target #s/p Aortic valve replacement, mgmt per primary #Thrombocytopenia, unclear etiology: await HIT panel -HIT panel pending -Platelets have increased today -cont to monitor #chronic AC -AC per primary #CIDP/chronic immunosuppression: cont home meds. On home Prednisone #CHF, on diuretics BID #chronic Afib/pacemaker #ABLA, s/p PRBC transfusion. No signs of active bleeding. Monitor Subjective: Feels good. Restarted insulin pump yesterday. No CP or SOB Objective: Vital Signs Temp Pulse Resp BP Pulse Ox 36.7 C 73 20 99/62 L 92 02/23/17 11:40 02/23/17 11:40 02/23/17 11:40 02/23/17 11:40 02/23/17 11:40 Laboratory Results 02/23/17 06:10 02/22/17 05:55 02/22/17 02/23/17 02/24/17 05:59 05:59 05:59 Intake Total 350 900 Output Total 1130 2395 275 Balance -603 -1495 -275 - Physical Exam Constitutional: no apparent distress Eyes: PERRL, EOMI Ears, Nose, Mouth, Throat: moist mucous membranes, hearing normal Cardiovascular: regular rate and rhythym Respiratory: no respiratory distress, no rales or rhonchi Gastrointestinal: normoactive bowel sounds Skin: warm Neurologic: AAOx3 Psychiatric: interacting appropriately, not anxious, not encephalopathic ICD10 Worksheet Patient Problems: Problems Problem Status Onset Atrial fibrillation Acute Bicuspid aortic valve Acute CHF (congestive heart failure), NYHA class II Acute Diabetes Acute LBBB (left bundle branch block) Acute Neuropathy Acute Thoracic aneurysm Acute Chronic inflammatory demyelinating neuropathy Chronic 10/21/13
[2017-02-23] MEDS ORDERED: WARFARIN SODIUM 5 MG TAB PO ONE (16:00)
[2017-02-23 19:38] VITALS: O2SAT 94
[2017-02-23] MEDS: PANTOPRAZOLE SODIUM 40 MG TAB PO SCH (21:02)
[2017-02-23] MEDS: LATANOPROST 0.005% 2.5 ML OPHT DROPS EACHEYE SCH (21:03)
[2017-02-23] MEDS: traMADol 50 MG TAB PO PRN (21:55)
[2017-02-23 22:49] VITALS: PULSE 74
[2017-02-24] MEDS: traMADol 50 MG TAB PO PRN ×2 (04:15→10:29)
[2017-02-24] MEDS: oxyCODONE IR 5 MG TAB PO PRN (04:16)
[2017-02-24 05:50] LABS: HEMATOCRIT 24.6 % (40.0-51.0); HEMOGLOBIN 8.4 g/dL (13.7-17.5); LIPEMIA HEMOLYSIS FLAG 90 (0-99); MEAN CELL HEMOGLOBIN 36.2 pg (27.9-34.1); MEAN CELL HEMOGLOBIN CONCENTR. 34.1 g/dL (32.4-36.7); PLATELET CLUMPS FLAG 50 (0-99); RED BLOOD CELL COUNT 2.32 10^6/uL (4.40-6.38); RED CELL DISTRIBUTION WIDTH 17.6 % (11.5-15.2)
[2017-02-24 05:53] LABS: PLATELET COUNT 46 10^3/uL (150-400)
[2017-02-24 06:10] LABS: ANION GAP 6 mEq/L (8-16); CARBON DIOXIDE 32 mEq/l (22-31); CHLORIDE 97 mEq/L (97-110); CREATININE 0.6 mg/dL (0.7-1.3); GLOMERULAR FILTRATION RATE > 60; GLUCOSE 80 mg/dL (70-100); POTASSIUM 3.8 mEq/L (3.5-5.2); SODIUM 135 mEq/L (134-144)
[2017-02-24 06:20] LABS: PLATELET ESTIMATE DECREASED (ADEQ)
--- NOTE | 2017-02-24 08:01 | SOAPPROG ---
SOAP Progress Note Assessment/Plan: POD #5: Aortic root replacement with #23 bioprosthetic freestyle root, ascending aortic aneurysm repair with #32 graft, MV debridement and repair with #34 Physio ring, AtriClip TEVIN Severe with BAV s/p bioprosthetic aortic root replacement - stable. Asc ao aneurysm s/p repair - stable. Moderate MR with calcification s/p debridement and repair - stable. Thromboprophylaxis as per PAF. 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 BP too low for BB or JAQUELINE inhibitors. Permanent AF with remote BIV placmement and AV node ablation - Thromboprophylaxis with Coumadin. INR goal 2-3. Acute blood loss anemia - stable s/p 2 PRBC, 2 FFP, 1 platelet. CIDP - on azathioprine and prednisone. IDDM - well-managed with pump. Subjective: Denies SOB. Has some manageable incisional CP. Objective: Vital Signs Temp Pulse Resp BP Pulse Ox 36.6 C 74 16 101/63 94 02/24/17 03:58 02/24/17 03:58 02/24/17 03:58 02/24/17 03:58 02/24/17 03:58 Laboratory Results 02/24/17 05:40 02/24/17 05:40 02/23/17 02/24/17 02/25/17 05:59 05:59 05:59 Intake Total 900 1050 Output Total 2395 1575 Balance -1495 -525 Physical Exam - Physical Exam General Appearance: WD/WN, alert, no apparent distress EENT: No scleral icterus (R), No scleral icterus (L) Neck: normal inspection Respiratory: No respiratory distress Cardiac/Chest: other (paced) Abdomen: non-tender, soft, No distended Skin: normal color, warm/dry Extremities: No pedal edema Neuro/Psych: no motor/sensory deficits, alert, normal mood/affect, oriented x 3 ICD10 Worksheet Patient Problems: Problems Problem Status Onset Atrial fibrillation Acute Bicuspid aortic valve Acute CHF (congestive heart failure), NYHA class II Acute Diabetes Acute LBBB (left bundle branch block) Acute Neuropathy Acute Thoracic aneurysm Acute Chronic inflammatory demyelinating neuropathy Chronic 10/21/13
[2017-02-24] MEDS ORDERED: NON-FORMULARY NEW DRUG (Insulin Pump, Patient Own 1 EA) MISC SCH (08:15)
[2017-02-24 08:17] VITALS: BP 87/49; RESP 18; TEMP 97.2
[2017-02-24 08:39] LABS: HEMATOCRIT 27.1 % (40.0-51.0); HEMOGLOBIN 9.3 g/dL (13.7-17.5); MEAN CELL HEMOGLOBIN 36.3 pg (27.9-34.1); MEAN CELL HEMOGLOBIN CONCENTR. 34.3 g/dL (32.4-36.7); MEAN CELL VOLUME 105.9 fL (81.5-99.8); RED BLOOD CELL COUNT 2.56 10^6/uL (4.40-6.38); RED CELL DISTRIBUTION WIDTH 17.5 % (11.5-15.2)
[2017-02-24 08:53] LABS: INR 1.41 (0.83-1.16); PROTIME(PATIENT) 17.2 SEC (12.0-15.0)
--- NOTE | 2017-02-24 09:55 | HOSPPROG ---
Hospitalist Progress Note Assessment/Plan: #IDDM with hyperglycemia due to malfunctioning pump now with good glycemic control -continue insulin pump per patient #s/p Aortic valve replacement, mgmt per primary #Thrombocytopenia, unclear etiology: await HIT panel -HIT panel pending #chronic AC -AC per primary #CIDP/chronic immunosuppression: cont home meds. On home Prednisone #CHF, on diuretics BID #chronic Afib/pacemaker #ABLA, s/p PRBC transfusion. No signs of active bleeding. Monitor OK to DC home per CT surgery. Recommend repeat cbc 1 week and pcp followup regarding thrombocytopenia Subjective: no acute complaints. Had to decrease basal insulin overnight due to falling blood glucose. Objective: Vital Signs Temp Pulse Resp BP Pulse Ox 36.2 C 74 18 87/49 L 94 02/24/17 08:00 02/24/17 08:00 02/24/17 08:00 02/24/17 08:00 02/24/17 08:00 Laboratory Results 02/24/17 08:30 02/24/17 05:40 02/23/17 02/24/17 02/25/17 05:59 05:59 05:59 Intake Total 900 1050 Output Total 2395 1575 Balance -1495 -525 PT 17.2 SEC (12.0-15.0) H 02/24/17 08:30 INR 1.41 (0.83-1.16) H 02/24/17 08:30 gen nad cv rrr pulm clear ICD10 Worksheet Patient Problems: Problems Problem Status Onset CHF (congestive heart failure), NYHA class II Acute LBBB (left bundle branch block) Acute Diabetes Acute Neuropathy Acute Atrial fibrillation Acute Thoracic aneurysm Acute Bicuspid aortic valve Acute Chronic inflammatory demyelinating neuropathy Chronic 10/21/13
--- NOTE | 2017-02-24 10:06 | ECHO ---
[email or web address] [address] [address] Main: [phone] Fax: Transthoracic Echocardiogram Name: RISA HOLLAND MR#: [id number] Study Date: 02/24/2017 Study Time: 08:14 AM Date of : 1945 Age: 71 year(s) Height: 177.8 cm (70 in.) Weight: 80.74 kg (178 lb.) BSA: 1.99 m2 Gender: Male Examination: Echo Indication: post AVR, MV ring, and aortic root graft Image Quality: Adequate Contrast: Requested by: Ishaan Gonsales BP: 87 mmHg/49 mmHg Heart Rate: 78 bpm Rhythm: Pacemaker rhythm Indication: post AVR, MV ring, and aortic root graft Procedure Staff Multiple Launch Rocket System Crewmember: Geeta Newton Physician: Jose Cuevas Requesting Provider: Conclusions: No pericardial effusion. Normal left ventricular systolic function. Pacer in the right heart. Normally functioning aortic valve prosthesis. Mitral valve annuloplasty ring with thickening of the leafelts. RVSP of 32mmHg. Measurements: Chambers Valvular Assessment AV/MV Valvular Assessment TV/PV Normal Normal Normal Name Value Range Name Value Range Name Value Range IVSd (2D): 1.3 cm (0.6 cm-1.1 AV Vmax: 1.77 m/s (1 m/s-1.7 TR Vmax: 2.33 mm/s ( - ) cm) m/s) TR PGmax: 22 mmHg ( - ) LVDd (2D): 4.4 cm (4.2 cm-5.9 AV maxP mmHg ( - ) syst. PAP: 32 mmHg ( - ) cm) AV meanP mmHg ( - ) PV Vmax: 1.12 m/s (0.6 m/s-0.9 LVDs (2D): 2.9 cm (2.1 cm-4 LVOT Vmax: 1.32 m/s (0.7 m/s-1.1 m/s) cm) m/s) PV PGmax: 5 mmHg ( - ) LVPWd (2D): 1.1 cm (0.6 cm-1 MV meanP mmHg ( - ) cm) MV PHT: 0.072 s ( - ) LVEF (2D): 63 (>=54 %) MVA (PHT): 3.1 s ( - ) Continued Measurements: Valvular Assessment AV/MV Valvular Assessment TV/PV Name Value Name Value MV VTI: 31.20 cm CVP (est.): 10 mmHg Additional Vessels Name Value Ao Ascendin.5 cm Patient: RISA HOLLAND Study Date: 02/24/2017 Page 1 of 2 08:14 AM Findings: Left Ventricle: Normal size left ventricle. Concentric LV hypertrophy. Normal global systolic LV function. EF is 63 %. Unable to assess diastolic dysfunction. Mild post-op septal motion noted.. Right Ventricle: There is a pacemaker lead noted in the right ventricle. Septal motion consistent with post-operative state free wall. RV not well visualized; it appears grossly normal in size and function.. Left Atrium: The left atrium is normal in size. Right Atrium: The right atrium is normal in size. There is a pacemaker lead noted in the right atrium. Mitral Valve: There is mild thickening of the mitral valve leaflets. There is no significant mitral valve regurgitation. No mitral stenosis is present. An annuloplasty ring is noted in the mitral valve position. Aortic Valve: Mean aortic valve gradient 8. The aortic valve is a bioprosthesis. Normal functioning aortic valve prosthesis. No prosthesis regurgitation. Tricuspid Valve: The tricuspid valve appears normal. Mild tricuspid regurgitation is present. Right ventricular systolic pressure measures 32mmHg. The pulmonary artery pressure is mildly increased. Pulmonic Valve: The pulmonic valve is normal in appearance and function. Mild pulmonic valve regurgitation is noted. Aorta: The aortic root was not well visualized. In parasternal long axis view it appears dilated but that could be due to shadowing and off axis measurements. . Dilated ascending aorta measuring 4.5 cm. Pericardium: No pericardial effusion. Left side pleural effusion. (No Signature Object) Patient: RISA HOLLAND Study Date: 02/24/2017 Page 2 of 2 08:14 AM [id number]
--- NOTE | 2017-02-24 10:17 | PDIAF ---
- Diagnosis Diagnosis: s/p aortic root replacement, MV repair, asc ao replacement, AtriClip TEVIN Code Status: Full Code - Medication Management Discharge Medications: Medications to Continue on Transfer Alendronate Sodium [Fosamax 70 MG (*)] 70 mg PO TU@0800 06/09/16 [Last Taken 09:00] azaTHIOprine [Imuran 50 mg (*)] 200 mg PO DAILY 06/09/16 [Last Taken 02/18/17 09 :00] Bupropion HCl [Bupropion HCl Sr] 100 mg PO DAILY 08/07/16 [Last Taken 02/18/17 09:00] Herbals/Supplements -Info Only 1 ea PO DAILY 08/07/16 [Last Taken 02/12/17] Insulin Pump, Patient Own 1 ea MISC AD 08/07/16 [Last Taken 08/07/16] Latanoprost 0.005% [Xalatan 0.005% (*)] 1 drops EACHEYE HS 08/07/16 [Last Taken 02/18/17 22:00] Loratadine 10 mg PO DAILY 08/07/16 [Last Taken 02/18/17 09:00] Multivitamins [Multivitamin (*)] 1 each PO DAILY@1800 08/07/16 [Last Taken 02/18 09:00] predniSONE 10 mg PO Q2D@21 08/07/16 [Last Taken 02/18/17 09:00] Cholecalciferol Vit D3 [Vitamin D3 2000 units tab (OTC)] 2,000 units PO DAILY [Last Taken 02/12/17] Naftifine HCl [Naftin] 1 ata TP DAILY PRN 09/04/16 [Last Taken 02/18/17 09:00] Citalopram Hydrobromide [Celexa] 40 mg PO DAILY 01/07/17 [Last Taken 02/18/17 09 :00] Glucosamine/Chondroitin [Glucosamine/Chondroitin (*)] 1 each PO BID 01/07/17 [ Last Taken 02/12/17] guaiFENesin [Mucinex 600 MG (*)] 600 mg PO BID 02/18/17 [Last Taken 02/18/17 09: 00] Aspirin [Aspirin 81mg (*)] 81 mg PO DAILY #0 tab.chew 02/24/17 [Last Taken Unknown] Furosemide [Lasix 40 MG (*)] 40 mg PO BID@0900,1500 tab 02/24/17 [Last Taken Unknown] Polyethylene Glycol 3350 [Miralax 17 gm (*)] 17 gm PO DAILY PRN pkt 02/24/17 [ Last Taken Unknown] Potassium Cl [Klor-Con 20 meq (*)] 20 meq PO BIDDIUR tab 02/24/17 [Last Taken Unknown] Warfarin Sodium [Coumadin 5MG (*)] 5 mg PO DAILY16 90 Days tab 02/24/17 [Last Taken Unknown] oxyCODONE IR [Oxycodone Ir (*)] 5 mg PO Q6H PRN tab 02/24/17 [Last Taken Unknown] traMADol [Ultram 50 mg (*)] 50 mg PO Q6 PRN tab 02/24/17 [Last Taken Unknown] Discharge Medications: Refer to the Discharge Home Medication list for PRN reason. PICC Care - Routine: N/A - Orders Services needed: Registered Nurse, Certified Software Integration Developer, Master Button Tufter , Physical Therapy, Occupational Therapy Isolation Type: None Oxygen: 1L NC with activity Diet Recommendation: no restrictions on diet, fluid restriction (use comment for amount) (2 liters per day) Diet Texture: Regular Texture Diet Weigh Patient: daily Pena: No Wound Care Instructions: Cleanse wounds once daily with soap and water. Avoid immersion (pool, hot tub, bath) until scabs off. Ok to leave all wounds open to air. Avoid creams or ointments until scabs fall off. Activity/Weight Bearing Restrictions: Sternal precautions x 4 weeks. Avoid lifting > 10lbs with an outstretched arm. Avoid push/pull activities. Elevate low legs at rest. Avoid prolonged standing or dangling. No driving until cleared by surgery. - Labs/Radiology CBC w/diff Date: 03/03/17 (Fax to [facility] [phone] Attn: Ilene Cabrera) PT/INR Date: 02/25/17 (dose Coumadin for INR goal 2-3) Imaging Orders: CXR on 03/04 prior to follow-up appt at [facility] - Follow Up Care Current Providers and Referrals: Zach Cui MD [Primary Care Provider] - Ishaan Gonsales DO [Doctor of Osteopathy] - 03/04/17 9:30 am German Payne MD [Medical Doctor] - follow up as scheduled (will be arranged after surgical follow-up)
[2017-02-24] MEDS: azaTHIOprine 50 MG TAB PO SCH (10:19)
[2017-02-24] MEDS: ASPIRIN 81 MG CHEWABLE TAB PO SCH (10:20)
[2017-02-24] MEDS: CITALOPRAM 20 MG TAB PO SCH (10:20)
[2017-02-24] MEDS: buPROPion SR 100 MG TAB PO SCH (10:21)
[2017-02-24] MEDS: guaiFENesin 600 MG TAB.ER PO SCH (10:22)
[2017-02-24] MEDS: INSULIN REGULAR HUMAN 100 UNIT/ML SC SCH (10:23)
[2017-02-24] MEDS: FUROSEMIDE 40 MG TAB PO SCH (10:24)
[2017-02-24] MEDS: SENNOSIDES/DOCUSATE SODIUM TAB PO SCH (10:25)
[2017-02-24] MEDS: CETIRIZINE 10 MG TAB PO SCH (10:26)
--- NOTE | 2017-02-24 10:29 | PDDCSUM ---
Discharge Summary Discharge Summary: ADMISSION DATE: 02/19/17 DISCHARGE DATE: 02/24/17 DISCHARGE DX: 1. Severe aortic stenosis 2. Ascending aortic aneurysm 3. Moderate mitral regurgitation 4. 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 Permanent AF with remote BIV PPM placement and AV node ablation with intra- op dislodgement of coronary sinus lead 6. Acute blood loss anemia 7. CIDP 8. IDDM PROCEDURES 02/19/17, Ishaan Gonsales: 1. Aortic root replacement with #23 bioprosthetic freestyle root, ascending aortic aneurysm replacement with #32 graft, mitral valve debridement and repair with #34 Physio ring, AtriClip TEVIN HOSPITAL COURSE BY PROBLEM LIST 1. Severe - s/p aortic root replacement with #23 bioprosthetic freestyle root. 2. Ascending aortic aneurysm - s/p repair with #32 graft. 3. Moderate mitral regurgitation - s/p repair with #34 Physio ring. Thromboprophylaxis with Coumadin, INR goal 2-3, duration lifelong d/t permanent atrial fibrillation. 4. Chronic systolic and diastolic class II CHF - BID Lasix prescribed. BP too low for beta-blockers or JAQUELINE inhibitors. 5. Permanent AF with remote BIV PPM placement and AV node ablation with intra- op dislodgement of coronary sinus lead - pacer interrogated with normal functioning RV lead. Coronary sinus lead turned off with planned f/u with Dr. Payne for further management. 6. Acute blood loss anemia - stable s/p 2U PRBC, 2U FFP, 1U platelet. 7. CIDP - stable on azathioprine and prednisone. 8. IDDM - home pump restarted. CONDITION Fair DISPOSITION [facility] ACTIVITY Pt was instructed on sternal precautions, activity limitations, and which problems to call [facility] with. Please see Discharge Plan and Interagency Discharge Form in chart for specifics. DISCHARGE MEDICATIONS 1. Alendronate Sodium [Fosamax 70 MG (*)] 70 mg PO TU@0800 2. azaTHIOprine [Imuran 50 mg (*)] 200 mg PO DAILY 3. Bupropion HCl [Bupropion HCl Sr] 100 mg PO DAILY 4. Herbals/Supplements -Info Only 1 ea PO DAILY 5. Insulin Pump, Patient Own 1 ea MISC AD 6. Latanoprost 0.005% [Xalatan 0.005% (*)] 1 drops EACHEYE HS 7. Loratadine 10 mg PO DAILY 8. Multivitamins [Multivitamin (*)] 1 each PO DAILY@1800 9. predniSONE 10 mg PO Q2D@21 10. Cholecalciferol Vit D3 [Vitamin D3 2000 units tab (OTC)] 2,000 units PO DAILY 11. Naftifine HCl [Naftin] 1 ata TP DAILY PRN 12. Citalopram Hydrobromide [Celexa] 40 mg PO DAILY 13. Glucosamine/Chondroitin [Glucosamine/Chondroitin (*)] 1 each PO BID 14. guaiFENesin [Mucinex 600 MG (*)] 600 mg PO BID 15. Aspirin [Aspirin 81mg (*)] 81 mg PO DAILY 16. Furosemide [Lasix 40 MG (*)] 40 mg PO BID@0900,1500 17. Polyethylene Glycol 3350 [Miralax 17 gm (*)] 17 gm PO DAILY PRN 18. Potassium Cl [Klor-Con 20 meq (*)] 20 meq PO BIDDIUR 19. Warfarin Sodium [Coumadin 5MG (*)] 5 mg PO DAILY16 (INR goal 2-3) 20. oxyCODONE IR [Oxycodone Ir (*)] 5 mg PO Q6H 21. traMADol [Ultram 50 mg (*)] 50 mg PO Q6 PRN PENDING STUDIES/LABS 1. CXR prior to surgical follow-up 2. INR daily (goal 2-3) 3. CBC 03/03/17 F/U APPOINTMENTS 1. Ishaan Gonsales - 03/04/17, 9:30 AM 2. German Payne - 2-3 weeks
[2017-02-24] MEDS: POTASSIUM CL 20 MEQ TAB PO SCH (11:25)
[2017-02-24] MEDS ORDERED: WARFARIN SODIUM 5 MG TAB PO ONE (12:28)
[2017-02-24 14:19] LABS: HEPARIN INDUCED ANTIBODY Negative (Negative); HEPARIN-PF4 IgG ANTIBODY ELISA < 0.075 OD (<0.400)
[2017-02-24] MEDS ORDERED: POTASSIUM CL 20 MEQ TAB PO SCH (15:00)
--- NOTE | 2017-02-24 16:22 | ASDISCHSUM ---
Discharge Information Plan Status:SNF Medically Cleared to Leave:02/23/2017 Discharge Date:02/24/2017 02:35 PM CM D/C Disposition:Home, Routine, Self-Care ADT D/C Disposition:Usp Facility Projected Discharge Date:02/25/2017 11:00 AM Transportation at D/C:Wheelchair Van Discharge Delay Reason: Follow-Up Date:02/25/2017 11:00 AM Discharge Slot: Final Diagnosis: Placement Information Referral Type:*Care Home/SNF Referral ID:[id number] Provider Name:[facility] Address 1:[address] Address 2: City:[place] Selection Factors: State:[place] Patient Contact Information Contact Name:JEAN CARLOS Relationship:Sister Address: Work Phone: City: [facility] Phone: [facility] Code: Email: Financial Information Financial Class: Primary Plan Desc:MEDICARE INPATIENT Primary Plan Number:[id number] Secondary Plan Desc:AARP/MDR SUPPLEMENT Secondary Plan Number:[id number] Assessment Information [facility] CM Progress Note CM Note CM Note Notes: Pt. is a 71-year-old man admitted for cardiac surgery. Per ICU rounds, Pt. is having a difficult time processing information at this time. Go slowly. Pt. has a hx. of depression. Pt. lives at [facility]. Per ICU rounds, sister Alexus is MDPOA, but in electronic record, sister Camilla is MDPOA. PT and OT ordered. Await recommendations to guide d/c planning process. CM to follow for d/c POC. Date Signed: 02/20/2017 04:34 PM Electronically Signed By:Olga Salas LCSW [facility] CM Progress Note CM Note CM Note Notes: Spoke with Camilla Pinzon, patient's sister to clarify the MDPOA. Camilla states she is the MDPOA and Alexus, patient's friend is the second person listed in the paperwork. We do not have this paperwork in the medical record and Camilla said she was sure her brother would sign new forms so we can have it on record. Left a message for Josee Morrison to assist with getting new paperwork signed. CM will follow. Date Signed: 02/21/2017 11:47 AM Electronically Signed By:Asuncion Bruce LCSW [facility] CM Progress Note CM Note CM Note Notes: 02/21/2017 Case Mangement Note PT recommending SNF rehab. Spoke w/Soila at [facility] to update on admission. [facility] anticipating pt to admit to SNF rehab. Faxed updates per Soila's request, [facility] able to take pt at d/c. Case Management d/c poc: to [facility] when medically stable. Case Management to follow. Date Signed: 02/21/2017 03:26 PM Electronically Signed By:Kandy Vieira RN Case Management Discharge Plan Note Case Management Discharge Discharge Order Complete? Answers: Yes Patient to Obtain Answers: Other Notes: [facility] Medications Transportation Arranged Answers: Family/Friends Faxed Final Orders Answers: Yes Agency/Facility Transfer Answers: Yes Report Printed & Faxed to Receiving Agency Discharge Comments Notes: Pt arranged transport with friend. Faxed final orders to [facility]. Alerted via phone. Rn to call report Date Signed: 02/24/2017 11:56 AM Electronically Signed By:Kandy Vieira RN Intervention Information Intervention Type:*IM-Signed Date of Service:02/24/2017 10:29 AM Patient Type:Inpatient Staff Member:Nafisa Calvillo Hours: Discipline: Severity: Comment:
[2017-02-25] MEDS ORDERED: ALENDRONATE SODIUM 70 MG TAB PO SCH (08:00)
== END 2017-02-24 14:35 | DRG 220 ==
LOC: F2N 06:34 → F2W 02-21 14:48
PROVIDERS: ADMIT Thoracic Surgery (Cardiothoracic Vascular Surgery); ATTEND Thoracic Surgery (Cardiothoracic Vascular Surgery)
PROC: 5A1221Z Performance of Cardiac Output, Continuous (ICD-10-PCS; principal; 2017-02-19 08:30)
PROC: 02L70CK Occlusion of Left Atrial Appendage with Extraluminal Device, Open Approach (ICD-10-PCS; principal; 2017-02-19 08:30)
PROC: 02RF08Z Replacement of Aortic Valve with Zooplastic Tissue, Open Approach (ICD-10-PCS; principal; 2017-02-19 08:30)
PROC: 04V00DZ Restriction of Abdominal Aorta with Intraluminal Device, Open Approach (ICD-10-PCS; principal; 2017-02-19 08:30)
PROC: 02BG0ZZ Excision of Mitral Valve, Open Approach (ICD-10-PCS; principal; 2017-02-19 08:30)
PROC: 02UG0JZ Supplement Mitral Valve with Synthetic Substitute, Open Approach (ICD-10-PCS; principal; 2017-02-19 08:30)
PROC: 30233R1 Transfusion of Nonautologous Platelets into Peripheral Vein, Percutaneous Approach (ICD-10-PCS; 2017-02-19 08:30)
PROC: 30233K1 Transfusion of Nonautologous Frozen Plasma into Peripheral Vein, Percutaneous Approach (ICD-10-PCS; 2017-02-19 08:30)
DX: I08.0 Rheumatic disorders of both mitral and aortic valves (principal); D62 Acute posthemorrhagic anemia; I50.42 Chronic combined systolic (congestive) and diastolic (congestive) heart failure; G61.81 Chronic inflammatory demyelinating polyneuritis; I71.4 Abdominal aortic aneurysm, without rupture; E10.65 Type 1 diabetes mellitus with hyperglycemia; I48.2 Chronic atrial fibrillation; G47.33 Obstructive sleep apnea (adult) (pediatric); D69.6 Thrombocytopenia, unspecified; Z95.0 Presence of cardiac pacemaker; Z96.41 Presence of insulin pump (external) (internal); Z79.4 Long term (current) use of insulin; Z79.52 Long term (current) use of systemic steroids
CPT/HCPCS: 82947-QW; 86022-90; 97116-GP; 97161-GP; 97165-GO; 97530-GO; 97530-GP; 97535-GO; C1768; G8978-GP-CK; G8979-GP-CI; G8987-GO-CJ; G8988-GO-CI; J0153; J0282; J0690; J1170; J1265; J1644; J1815; J1885; J1940; J2001; J2150; J2260; J2310; J2370; J2405; J2704; J2720; J2765; J2930; J3010; J7060; J7500; P9016; P9017; P9035; P9041

== ENCOUNTER → 2017-03-04 | Outpatient (CLI) | payer OTHER, MEDICARE | LOC: FIMAGING 09:05 | PROVIDERS: ATTEND Thoracic Surgery (Cardiothoracic Vascular Surgery) | DX: Z95.2 Presence of prosthetic heart valve (principal) ==

== ENCOUNTER → 2017-03-27 | Outpatient (CLI) | payer OTHER, MEDICARE ==
[2017-03-27 14:11] LABS: INR 3.2 (0.8-1.2)
== END ==
LOC: FACT 08:00 → EDSTATUS 10:43 → FACT 13:57
PROVIDERS: ATTEND Thoracic Surgery (Cardiothoracic Vascular Surgery)
DX: Z51.81 Encounter for therapeutic drug level monitoring (principal); Z79.01 Long term (current) use of anticoagulants; I48.91 Unspecified atrial fibrillation
CPT/HCPCS: G0463

== ENCOUNTER 2017-04-22 10:44 | Observation (INO) | payer OTHER, MEDICARE ==
[2017-04-22] MEDS ORDERED: diphenhydrAMINE 25 MG CAP PO ONE (10:49)
[2017-04-22] MEDS ORDERED: NS 1,000 ML IV ONE (10:49)
[2017-04-22] MEDS ORDERED: ceFAZolin 2 GM/SWFI 2 GM/20 ML SYR IVP ONE (10:49)
[2017-04-22] MEDS ORDERED: BACITRACIN IRRIGATION/NS 50,000 UNITS/1,000 ML BTL IRR ONE (10:49)
[2017-04-22] MEDS ORDERED: DIAZEPAM 5 MG TAB PO ONE (10:49)
--- NOTE | 2017-04-22 11:13 | CPEKG ---
Heart Rate: 71 RR Interval: 845 QRSD Interval: 140 QT Interval: 488 QTC Interval: 531 QRS [place]: -69 T Wave [place]: 134 EKG Severity - ABNORMAL ECG - EKG Impression: AFIB/FLUT AND V-PACED COMPLEXES Electronically Signed By: German Payne 22-Apr-2017 11:19:39
[2017-04-22 11:29] LABS: PLATELET COUNT 148 10^3/uL (150-400)
[2017-04-22 11:39] LABS: INR 1.55 (0.83-1.16); PROTIME(PATIENT) 18.7 SEC (12.0-15.0)
--- NOTE | 2017-04-22 11:45 | PDANEPAE ---
ANE History of Present Illness left vent lead revision ANE Past Medical History - Cardiovascular History Hx Hypertension: No Hx Arrhythmias: Yes Hx Chest Pain: No Hx Coronary Artery / Peripheral Vascular Disease: Yes Hx CHF / Valvular Disease: No Hx Palpitations: No Cardiovascular History Comment: chf. afib. aortic stenosis. mitral regurg - Pulmonary History Hx COPD: No Hx Asthma/Reactive Airway Disease: No Hx Recent Upper Respiratory Infection: No Hx Oxygen in Use at Home: No Hx Sleep Apnea: Yes Pulmonary History Comment: hx of shy, not using cpap currently - Neurologic History Hx Cerebrovascular Accident: Yes Hx Seizures: No Hx Dementia: No Neurologic History Comment: chronic inflammatory demyelinating polyneuropathy. peripheral neuropathy. small stroke- pt is unaware of having or when. mild cognitive deficit in terms of short term memory - Endocrine History Hx Diabetes: Yes Hypothyroid: No Hyperthyroid: No Endocrine History Comment: type 1 - Renal History Hx Renal Disorders: No - Liver History Hx Hepatic Disorders: No - Neurological & Psychiatric Hx Hx Neurological and Psychiatric Disorders: Yes Neurological / Psychiatric History Comment: depression- well controlled currently - Cancer History Hx Cancer: No - Congenital Disorder History Hx Congenital Disorders: No - GI History Hx Gastrointestinal Disorders: No - Other Health History Other Health History: wears glasses - Chronic Pain History Chronic Pain: No - Surgical History Prior Surgeries: pacemaker placed 08/07/16. cardiac abation. hernia repair. cataract ANE Review of Systems Review of systems is: negative Review of Systems: - Exercise capacity Exercise capacity: >=4 METS ANE Patient History - Allergies Allergies/Adverse Reactions: acetaminophen Allergy (Intermediate, Verified 02/20/17 20:33) Other-Enter Comments carvedilol [From Coreg] Allergy (Unknown, Verified 02/19/17 07:28) peripheral neuropathy attack shortly after taking meperidine HCl [From Demerol] Allergy (Unknown, Verified 02/19/17 07:28) peripheral neuropathy attack shortly after taking metronidazole [From Flagyl] Allergy (Unknown, Verified 02/19/17 07:28) peripheral neuropathy attack shortly after taking midazolam HCl [From Versed] Allergy (Unknown, Verified 02/19/17 07:28) peripheral neuropathy attack shortly after taking fentanyl Allergy (Verified 02/19/17 07:28) possibly r/t peripheral neuropathy attack shortly after taki pneumococcal vaccine Allergy (Verified 02/19/17 07:28) peripheral neuropathy attack shortly after taking FLU VACCINE Allergy (Uncoded 02/19/17 07:28) peripheral neuropathy attack shortly after taking - Home Medications Home Medications: Alendronate Sodium [Fosamax 70 MG (*)] 70 mg PO TU@0800 06/09/16 [Last Taken ] azaTHIOprine [Imuran 50 mg (*)] 200 mg PO DAILY 06/09/16 [Last Taken 04/21/17] Bupropion HCl [Bupropion HCl Sr] 100 mg PO DAILY 08/07/16 [Last Taken 04/21/17] Herbals/Supplements -Info Only 1 ea PO DAILY 08/07/16 [Last Taken 04/21/17] Insulin Pump, Patient Own 1 ea MISC AD 08/07/16 [Last Taken 04/22/17] Latanoprost 0.005% [Xalatan 0.005% (*)] 1 drops EACHEYE HS 08/07/16 [Last Taken 04/21/17] Loratadine 10 mg PO DAILY 08/07/16 [Last Taken 04/21/17] Multivitamins [Multivitamin (*)] 1 each PO DAILY@1800 08/07/16 [Last Taken 04/21] predniSONE 10 mg PO Q2D@21 08/07/16 [Last Taken 04/21/17] Cholecalciferol Vit D3 [Vitamin D3 2000 units tab (OTC)] 2,000 units PO DAILY [Last Taken 04/21/17] Naftifine HCl [Naftin] 1 ata TP DAILY PRN 09/04/16 [Last Taken 04/21/17] Citalopram Hydrobromide [Celexa] 40 mg PO DAILY 01/07/17 [Last Taken 04/21/17] Glucosamine/Chondroitin [Glucosamine/Chondroitin (*)] 1 each PO BIDMEAL [Last Taken 04/21/17] guaiFENesin [Mucinex 600 MG (*)] 600 mg PO BIDMEAL PRN 02/18/17 [Last Taken ] Amoxicillin Trihydrate [Amoxicillin] 2,000 mg PO AD PRN 04/17/17 [Last Taken Unknown] Furosemide [Lasix 20 MG (*)] 20 mg PO DAILY 04/17/17 [Last Taken 04/21/17] Metoprolol Succinate Xr [Toprol Xl 25 mg (*)] 25 mg PO DAILY 04/17/17 [Last Taken 04/21/17] Potassium Cl [Klor-Con 20 meq (*)] 20 meq PO DAILY 04/17/17 [Last Taken 04/22/17 ] Sennosides/Docusate Sodium [Senna-Docusate Sodium Tablet] 1 - 4 each PO HS 04/17 [Last Taken 04/21/17] Warfarin Sodium [Coumadin 2.5MG (*)] 2.5 mg PO MOFR@04/17/17 [Last Taken Unknown] Warfarin Sodium [Coumadin 5MG (*)] 5 mg PO SUTUWETHSA@04/17/17 [Last Taken ] - NPO status NPO Status: no food or drink >8 hours - Anes Hx Anes Hx: no prior problems - Smoking Hx Smoking Status: Never smoked - Alcohol Use Alcohol Use: Rarely - Family Anes Hx Family Hx Anesthesia Complications: none ANE Labs/Vital Signs - Labs Result Diagrams: 04/22/17 11:10 04/22/17 11:10 - Vital Signs Vital Signs: reviewed preoperatively; see RN documention for details Height: 177.8 cm Weight: 74.843 kg ANE Physical Exam - Airway Mallampati Score: Class 2 - Pulmonary Pulmonary: no respiratory distress - Cardiovascular Cardiovascular: regular rate and rhythym - ASA Status ASA Status: IV ANE Anesthesia Plan Anesthesia Plan: general endotracheal anesthesia
[2017-04-22] MEDS ORDERED: BUPIVACAINE 0.5% 30 ML SDV ONE (12:07)
[2017-04-22] MEDS ORDERED: LIDOCAINE 1% 300 MG/30 ML SDV ONE (12:07)
[2017-04-22] MEDS ORDERED: IOPAMIDOL (ISOVUE-300) 100 ML BTL ONE (12:07)
--- NOTE | 2017-04-22 12:30 | PDGENHP ---
History & Physical Chief Complaint: post av node ablation, lv lead dislodged during ct surgery Pertinent Past, Social, Family History: avr Relevant Physical Exam: s1s2 irreg. cta. ao3 Cardiorespiratory Assessment: for lv lead reposition
[2017-04-22] MEDS ORDERED: LIDOCAINE 2% 5 ML SDV ONE (12:39)
[2017-04-22] MEDS ORDERED: fentaNYL 100 MCG/2 ML INJ ONE (12:39)
[2017-04-22] MEDS ORDERED: ROCURONIUM 50 MG/5 ML VIAL ONE (12:39)
[2017-04-22] MEDS ORDERED: PROPOFOL 200 MG/20 ML VIAL ONE (12:40)
--- NOTE | 2017-04-22 14:59 | EPPROC ---
Electrophysiology Procedure Note: PROCEDURE PERFORMED: 1. Removal of old CS lead, addition of new CS lead 2. Subclavian vein angiography 3. Fluoroscopy INDICATION: Patient with rate related cardiomyopathy, sp AV node ablation and BiV pacemaker LV (CS) lead dislodged after aortic valve surgery PROCEDURE NOTE: Patient presented to the cardiac catheterization laboratory in a fasting, postabsorptive state. Dr. Marty Paula administered anesthesia. The left infraclavicular area was prepped and draped in the usual sterile fashion. Lidocaine plus bupivacaine was used for local anesthesia. Left subclavian venography was performed by injection of iodinated contrast into the left antecubital vein. This was done to assure patency of the vei. Using a combination of blunt and sharp dissection and electrocautery, the dissection was carried down to the prepectoral fascia. The existing pacemaker pocket was opened. All bleeding was controlled with electrocautery. The pocket was packed with gauze soaked in antibiotic solution. Fluoroscopy was utilized during the entire procedure for venous access and placement of the lead. The preexisting SJM CS lead SN 1457 SN [id number] was freed from the tissue. Suture sleeve was freed. A stylet and an angioplasty wire was advanced through the lead but could not be advanced distally and therefore the CS lead was explanted. Using a direct stick technique the left extra thoracic axillary vein was accessed with 1 stick using the modified Seldinger technique. Placement of the guide wire into the venous system was confirmed by low pressure blood return and also by visualizing the guide wire advancing into the inferior vena cava. A 9 Bengali sheath was advanced over the guidewire into the subclavian vein. Using a [place] delivery system the coronary sinus ostium was engaged. Non occlusion angiography of CS was performed. A coronary sinus quadrapolar lead was advanced into the coronary sinus. An angioplasty wire was advanced through the lead and advanced distally into the mid portion of the anterolateral branch of the coronary sinus. The lead was advanced over the angioplasty wire. Pacing threshold, sensing and impedance was determined. There was no diaphragmatic stimulation at maximum output. The delivery system and the 9 Fr sheath were peeled away. Again, pacing threshold, sensing and impedance was determined. There was no diaphragmatic stimulation at maximum output. The CS lead was secured to the prepectoral fascia with 3 nonabsorbable sutures. Pacing threshold and sensing parameters of the RV and LV leads were checked again. The gauze packing was removed from the pacemaker pocket. The pocket was again inspected for any bleeding. The CS leadwas attached to the pacemaker securely. The pacemaker was inserted into the pocket and secured in place with a nonabsorbable suture. The pacemaker pocket was closed in 3 layers with absorbable monocryl sutures and emma. Appropriate dressing was applied. The patient left the cardiac catheterization laboratory in stable condition. Serial Numbers: 1. Device [facility] Quadra allure ENVIRONMENTAL COMPLIANCE MANAGER P [id number] 2. Right Ventricular Lead [facility] Tendril [id number] 3. Left Ventricular Lead [facility] 1457 75 cm SN [id number] Stimulation Thresholds & Impedance Measurements: 1. Right Ventricular Lead R 7.9 mv (junctional rhythm 38 bpm) 0.5 V 0.5 ms 440 ohm 2. Left Ventricular Lead R 27.1 mV 0.8 V 0.5 ms 0.9 mA 909 ohm Bari Pacing Parameters: 1. Pacing mode VVIR 2. Lower rate 60 ppm 3. Upper rate 130 ppm Patient Problems: Problems Problem Status Onset CHF (congestive heart failure), NYHA class II Acute LBBB (left bundle branch block) Acute Diabetes Acute Neuropathy Acute Atrial fibrillation Acute Thoracic aneurysm Acute Bicuspid aortic valve Acute Chronic inflammatory demyelinating neuropathy Chronic 10/21/13
[2017-04-22] MEDS ORDERED: guaiFENesin 600 MG TAB.ER PO PRN (15:00)
[2017-04-22] MEDS ORDERED: NON-FORMULARY NEW DRUG (Insulin Pump, Patient Own 1 EA) MISC SCH (15:00)
[2017-04-22] MEDS ORDERED: POLYETHYLENE GLYCOL 3350 17 GM PKT PO PRN (15:00)
[2017-04-22] MEDS ORDERED: NAFTIFINE HCL TP PRN (15:00)
[2017-04-22] MEDS ORDERED: fentaNYL 100 MCG/2 ML INJ IVP PRN (15:03)
[2017-04-22] MEDS ORDERED: NALOXONE HCL 0.4 MG/ML INJ IVP PRN (15:03)
--- NOTE | 2017-04-22 15:13 | CPEKG ---
Heart Rate: 60 RR Interval: 1000 QRSD Interval: 142 QT Interval: 536 QTC Interval: 536 QRS [place]: 186 T Wave [place]: -63 EKG Severity - ABNORMAL ECG - EKG Impression: AFIB/FLUTTER AND VENTRICULAR-PACED RHYTHM EKG Impression: COMPARED WITH 04/22/2017 AT 11:10, V PACED COMPLEXES HAVE DIFFERENT MORPHOLOGY; EKG Impression: T ABNL NOW SEEN Electronically Signed By: Katie Mcbride 22-Apr-2017 18:08:41
[2017-04-22] MEDS: GLUCOSAMINE/CHONDROITIN CAP PO SCH (17:38)
[2017-04-22] MEDS ORDERED: MULTIVITAMINS 1 EACH TAB PO SCH (18:00)
[2017-04-22] MEDS ORDERED: LATANOPROST 0.005% 2.5 ML OPHT DROPS EACHEYE SCH (21:00)
[2017-04-22] MEDS ORDERED: predniSONE 10 MG TAB PO SCH (21:00)
[2017-04-22] MEDS ORDERED: SENNOSIDES/DOCUSATE SODIUM TAB PO SCH (21:00)
[2017-04-23 05:16] LABS: PLATELET COUNT 150 10^3/uL (150-400)
--- NOTE | 2017-04-23 08:23 | CPEKG ---
Heart Rate: 60 RR Interval: 1000 P-R Interval: 239 QRSD Interval: 142 QT Interval: 504 QTC Interval: 504 P [place]: 0 QRS [place]: 221 T Wave [place]: -60 EKG Severity - ABNORMAL ECG - EKG Impression: VENTRICULAR-PACED RHYTHM Electronically Signed By: German Payne 23-Apr-2017 08:44:49
[2017-04-23] MEDS ORDERED: buPROPion SR 100 MG TAB PO SCH (09:00)
[2017-04-23] MEDS ORDERED: azaTHIOprine 50 MG TAB PO SCH (09:00)
[2017-04-23] MEDS ORDERED: FUROSEMIDE 20 MG TAB PO SCH (09:00)
[2017-04-23] MEDS ORDERED: CITALOPRAM 20 MG TAB PO SCH (09:00)
[2017-04-23] MEDS ORDERED: METOPROLOL SUCCINATE XR 25 MG TAB PO SCH (09:00)
[2017-04-23] MEDS ORDERED: POTASSIUM CL 20 MEQ TAB PO SCH (09:00)
[2017-04-23] MEDS ORDERED: CETIRIZINE 10 MG TAB PO SCH (09:00)
[2017-04-23] MEDS ORDERED: NON-FORMULARY NEW DRUG (Citalopram Hydrobromide [Celexa] 40 MG) PO SCH (09:00)
[2017-04-23] MEDS ORDERED: CHOLECALCIFEROL VIT D3 2,000 UNITS TAB/CAP PO SCH (09:00)
[2017-04-23] MEDS ORDERED: WARFARIN SODIUM 5 MG TAB PO SCH (09:00)
[2017-04-23] MEDS ORDERED: ASPIRIN 81 MG CHEWABLE TAB PO SCH (09:00)
[2017-04-23] MEDS ORDERED: NON-FORMULARY NEW DRUG (Loratadine [Loratadine] 10 MG) PO SCH (09:00)
[2017-04-23] MEDS: GLUCOSAMINE/CHONDROITIN CAP PO SCH (09:53)
[2017-04-23 11:30] VITALS: RESP 15; TEMP 98.1; O2SAT 95
[2017-04-23 11:31] VITALS: BP 104/54; PULSE 64
--- NOTE | 2017-04-23 14:56 | ASDISCHSUM ---
Discharge Information Plan Status:Home with No Needs Medically Cleared to Leave:04/22/2017 Discharge Date:04/23/2017 12:22 PM CM D/C Disposition:Home, Routine, Self-Care ADT D/C Disposition:Home, Routine, Self-Care Projected Discharge Date:04/23/2017 12:22 PM Transportation at D/C:Family Discharge Delay Reason: Follow-Up Date:04/23/2017 12:22 PM Discharge Slot: Final Diagnosis: Placement Information Patient Contact Information Contact Name:JEAN CARLOS Relationship:Sister Address: Work Phone: City: [facility] Phone: State/[employer] Code: Email: Financial Information Financial Class: Primary Plan Desc:MEDICARE OUTPATIENT Primary Plan Number:[id number] Secondary Plan Desc:AARP/MDR SUPPLEMENT Secondary Plan Number:[id number] Assessment Information Intervention Information Intervention Type:*NENA-Signed Date of Service:04/23/2017 09:46 AM Patient Type:Observation Staff Member:Nafisa Calvillo Hours: Discipline: Severity: Comment:
--- NOTE | 2017-04-24 02:00 | GDS ---
[f rep st] DISCHARGE SUMMARY DISCHARGE DIAGNOSES: 1. Nonischemic cardiomyopathy. 2. Left bundle branch block. 3. Permanent atrial fibrillation. 4. CS lead dislodgement during prior open heart surgery. BRIEF HISTORY: This is a 71-year-old man who has permanent AFib, prior AV node ablation with underlying junctional rhythm, biventricular pacemaker, who is status post aortic root replacement, ascending aortic aneurysm repair, mitral valve repair, atrial clip, left atrial appendage ligation, intraoperative dislodgement of the CS lead back in January. He was admitted for CS lead revision. HOSPITAL COURSE: Dr. Payne implanted a new CS lead without difficulty. The patient has done well overnight without symptoms of chest pain or shortness of breath. No significant discomfort at the pacemaker site. Pacemaker is programmed at VVIR, base rate of 60, sensor rate of 130. Per his request, sensor settings were adjusted. [place] was changed to fixed 8 and threshold changed from -0.5 to 0 per pt request due to c/o increased HR to 80 with minimal activity. TESTING DONE: Chest x-ray demonstrates excellent lead placement without pleural effusion. 12-lead EKG demonstrates AFib with biventricular pacing. LABORATORY DATA: WBC is 3.78, hemoglobin is 10.9, hematocrit is 32.5, platelets 150. Sodium 139, potassium 4.9, chloride 103, bicarb 29, BUN 13, creatinine 0.7, glucose 125. PHYSICAL EXAMINATION: VITAL SIGNS: Blood pressure is 114/57, pulse is 60, respirations 12, temperature is 36.5, O2 saturation on room air is 95%. GENERAL : He is alert and oriented, in no acute distress. Sitting up in bed. SKIN: Gauze and Opsite dressing over pacemaker incision are dry and intact without blood on gauze. There is no swelling. CARDIAC: Regular rate, rhythm with a 2/ 6 systolic murmur. LUNGS: Clear to auscultation. EXTREMITIES: Warm. No discoloration. No lower extremity edema. DISCHARGE MEDICATIONS: Please see discharge medication reconciliation. Of note , he will restart his warfarin today. DISCHARGE ACTIVITY INSTRUCTIONS: Post pacemaker implant instructions were reviewed with patient verbally, and he was given written instructions at the time of discharge. FOLLOWUP: He is to follow up for pacemaker and wound check on April 29 at 11 o'clock at [facility] and to follow up with Dr. Payne on May 21 at 2: 30 at [facility]. /[id number]/MODL MTDD
[2017-04-25] MEDS ORDERED: WARFARIN SODIUM 2.5 MG TAB PO SCH (09:00)
[2017-04-29] MEDS ORDERED: ALENDRONATE SODIUM 70 MG TAB PO SCH (08:00)
== END 2017-04-23 12:22 | disposition home or self-care (01) ==
LOC: FCATH 10:44 → F2W 14:59
PROVIDERS: ADMIT Internal Medicine Cardiovascular Disease; ATTEND Internal Medicine Cardiovascular Disease
PROC: 02HK3JZ Insertion of Pacemaker Lead into Right Ventricle, Percutaneous Approach (ICD-10-PCS; principal; 2017-04-22)
PROC: 02PA0MZ Removal of Cardiac Lead from Heart, Open Approach (ICD-10-PCS; principal; 2017-04-22)
DX: T82.120A Displacement of cardiac electrode, initial encounter (principal); I48.2 Chronic atrial fibrillation; Y69 Unspecified misadventure during surgical and medical care; I42.9 Cardiomyopathy, unspecified; I44.7 Left bundle-branch block, unspecified; I50.22 Chronic systolic (congestive) heart failure; G47.33 Obstructive sleep apnea (adult) (pediatric); E10.9 Type 1 diabetes mellitus without complications; I08.0 Rheumatic disorders of both mitral and aortic valves; F32.9 Major depressive disorder, single episode, unspecified; G61.81 Chronic inflammatory demyelinating polyneuritis; I71.4 Abdominal aortic aneurysm, without rupture; Z79.4 Long term (current) use of insulin; Z79.01 Long term (current) use of anticoagulants; Z95.2 Presence of prosthetic heart valve; Z95.0 Presence of cardiac pacemaker; Z95.4 Presence of other heart-valve replacement; Z86.73 Personal history of transient ischemic attack (TIA), and cerebral infarction without residual deficits
CPT/HCPCS: 33216; 33235; 71045; 71046; 93005; C1769; C1892; C1900; J0690; J2704; J3010; J7500; Q9967

== ENCOUNTER → 2017-06-09 | Outpatient (CLI) | payer OTHER, MEDICARE | LOC: BHFA 14:45 | PROVIDERS: ATTEND Internal Medicine | DX: I35.9 Nonrheumatic aortic valve disorder, unspecified (principal); I05.9 Rheumatic mitral valve disease, unspecified; I48.91 Unspecified atrial fibrillation; I49.3 Ventricular premature depolarization ==

== ENCOUNTER 2018-01-19 06:49 | Day surgery (SDC) | payer OTHER, MEDICARE ==
[2018-01-19] MEDS ORDERED: LR 1,000 ML IV ONE (07:04)
[2018-01-19] MEDS ORDERED: LIDOCAINE 1% 2 ML INJ ID PRN (07:04)
[2018-01-19] MEDS ORDERED: fentaNYL 100 MCG/2 ML INJ ONE (07:50)
[2018-01-19] MEDS ORDERED: LIDOCAINE 2% 5 ML SDV ONE (07:50)
[2018-01-19] MEDS ORDERED: PROPOFOL/EMULSION 500 MG/50 ML BOTTLE IV ONE (07:51)
[2018-01-19 07:56] LABS: INR 1.1 (0.83-1.16); PROTIME(PATIENT) 14.4 SEC (12.0-15.0)
--- NOTE | 2018-01-19 08:06 | PDANEPAE ---
ANE History of Present Illness screening colonoscopy per patient and data found at the time of the H/P ANE Past Medical History - Cardiovascular History Hx Hypertension: No Hx Arrhythmias: Yes Hx Chest Pain: No Hx Coronary Artery / Peripheral Vascular Disease: Yes Hx CHF / Valvular Disease: No Hx Palpitations: No Cardiovascular History Comment: unchf. afib. aortic stenosis. mitral regurg. AV bere ablation. Pacemaker s/p ablation. Abnormal echo, unclear if before or fter MVR/Aortic root Anneurysm repair. Underlying rhythm s/p MVR junctional escape - Pulmonary History Hx COPD: No Hx Asthma/Reactive Airway Disease: No Hx Recent Upper Respiratory Infection: No Hx Oxygen in Use at Home: No Hx Sleep Apnea: No Sleep Apnea Screening Result - Last Documented: Positive Pulmonary History Comment: hx of shy, not using cpap currently - Neurologic History Hx Cerebrovascular Accident: Yes Hx Seizures: No Hx Dementia: No Neurologic History Comment: chronic inflammatory demyelinating polyneuropathy. peripheral neuropathy. small stroke- pt is unaware of having or when. mild cognitive deficit in terms of short term memory - Endocrine History Hx Diabetes: Yes Endocrine History Comment: type 1 - Renal History Hx Renal Disorders: No - Liver History Hx Hepatic Disorders: No - Neurological & Psychiatric Hx Hx Neurological and Psychiatric Disorders: Yes Neurological / Psychiatric History Comment: depression- well controlled currently - Cancer History Hx Cancer: No - Congenital Disorder History Hx Congenital Disorders: Yes - GI History Hx Gastrointestinal Disorders: No - Other Health History Other Health History: wears glasses - Chronic Pain History Chronic Pain: No - Surgical History Prior Surgeries: pacemaker placed 08/07/16. AV bere ablation for chronic Afib. hernia repair. cataract. 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 Pacemaker Model: 3262 Pacemaker Mode: VVIR Pacemaker Set Rate: 60 Date Pacemaker Last Checked: 12/02/17 ANE Patient History - Allergies Allergies/Adverse Reactions: acetaminophen Allergy (Verified 12/29/17 11:24) "interferes with implanted glucose monitor" carvedilol [From Coreg] Allergy (Verified 12/29/17 11:24) peripheral neuropathy attack shortly after taking fentanyl Allergy (Verified 12/29/17 11:24) possibly r/t peripheral neuropathy attack shortly after taki meperidine HCl [From Demerol] Allergy (Verified 12/29/17 11:24) peripheral neuropathy attack shortly after taking metronidazole [From Flagyl] Allergy (Verified 12/29/17 11:24) peripheral neuropathy attack shortly after taking midazolam HCl [From Versed] Allergy (Verified 12/29/17 11:24) peripheral neuropathy attack shortly after taking pneumococcal vaccine Allergy (Verified 12/29/17 11:24) peripheral neuropathy attack shortly after taking FLU VACCINE Allergy (Uncoded 12/29/17 11:24) peripheral neuropathy attack shortly after taking - Home Medications Home Medications: azaTHIOprine [Imuran 50 mg (*)] 06/09/16 [Last Taken 01/19/18] Bupropion HCl [Bupropion HCl Sr] 08/07/16 [Last Taken 01/19/18] Herbals/Supplements -Info Only 08/07/16 [Last Taken 01/14/18] Insulin Pump, Patient Own 08/07/16 [Last Taken 04/22/17] predniSONE 08/07/16 [Last Taken 01/19/18] Citalopram Hydrobromide [Celexa] 01/07/17 [Last Taken 01/19/18] Metoprolol Succinate Xr [Toprol Xl 25 mg (*)] 04/17/17 [Last Taken 01/19/18] Warfarin Sodium [Coumadin 5MG (*)] 04/17/17 [Last Taken 01/14/18] - NPO status NPO Since - Liquids (Date): 01/19/18 NPO Since - Liquids (Time): 05:15 NPO Since - Solids (Date): 01/18/18 NPO Since - Solids (Time): 20:00 - Anes Hx Anes Hx: post operative cognitive dysfunction (Patient had an attack of peripheral neuropathy shortly after a procedure prior to AVR and since then has asked that mepiridiine and versed not be usd. He has since had fentanyl and is amenable t having it today for his colonoscopy. His post op cognitive dysfunction is multifactorial and not largely related to anesthesia per his report, but he still asks that no versed be used) - Smoking Hx Smoking Status: Never smoked - Family Anes Hx Family Hx Anesthesia Complications: none ANE Labs/Vital Signs - Labs Result Diagrams: 01/19/18 07:30 - Vital Signs Blood Pressure: 118/67 Heart Rate: 60 Respiratory Rate: 19 O2 Sat (%): 97 Height: 177.8 cm Weight: 77.111 kg ANE Physical Exam - Airway Neck exam: FROM Mallampati Score: Class 2 Mouth exam: normal dental/mouth exam - Pulmonary Pulmonary: no respiratory distress - Cardiovascular Cardiovascular: systolic murmur - ASA Status ASA Status: III ANE Anesthesia Plan Anesthesia Plan: GA with mask (Will plan fent/prop sedation/general with mask for this prcedure today)
--- NOTE | 2018-01-19 08:30 | PDGENHP ---
History & Physical Chief Complaint: Hematochezia History of Present Illness: Episodic hematochezia. Painless. No change in bowel habits. Pertinent Past, Social, Family History: PMH: Aortic valve replacement (porcine) . DM. Atrial fibrillation. Chronic anti-coagulation. SH: No tobacco. FH: colon cancer in an uncle. Relevant Physical Exam: NAD. CTA B/L. RRR. Occasional ectopy. No m/r/g. GI soft. Glucose monitor abdominal wall Cardiorespiratory Assessment: ASA III. Colonoscopy with MAC. Held coumadin since Friday. Took amoxicillin pre-procedure. Lovenox bridge, last injection PM.
--- NOTE | 2018-01-19 09:07 | GIREPORT ---
[facility] Surgical Services - Endoscopy Department Patient Name: Prosper Pinzon Procedure Date: 01/19/2018 8:27 AM Patient Type: Outpatient Attending / ER Physician: Santino Aguirre MD Procedure: Colonoscopy Indications: Screening for colorectal malignant neoplasm Providers: Santino Aguirre MD Medicines: Propofol per Anesthesia, Amoxicillin 1 g PO Complications: No immediate complications. Description of Procedure: After obtaining informed consent, the scope was passed under direct vis ion. Throughout the procedure, the patient's blood pressure, pulse, and oxyg en saturations were monitored continuously. The Colonoscope with irrigatio n channel was introduced through the anus and advanced to the cecum, identified by appendiceal orifice and ileocecal valve. The colonoscopy was performed without difficulty. The patient tolerated the procedure well. The quality of the bowel preparation was excellent. The ileocecal valve, appendiceal orifice, and rectum were photographed. Findings: Hemorrhoids were found on perianal exam. The digital rectal exam was normal. Pertinent negatives include normal sphincter tone, no palpable rectal lesions and normal prostate (size, s hape, and consistency). A 20 mm polyp was found in the recto-sigmoid colon. The polyp was semi-pedunculated. The polyp was removed with a hot snare. Resection an d retrieval were complete. To prevent bleeding after the polypectomy, two hemostatic clips were successfully placed (MR conditional). There was n o bleeding at the end of the procedure. Estimated Blood Loss: Estimated blood loss: none. Post Op Diagnosis: - Hemorrhoids found on perianal exam. - One 20 mm polyp at the recto-sigmoid colon, removed with a hot snare. Resected and retrieved. Clips (MR conditional) were placed. Recommendation: - Await pathology results. - Repeat colonoscopy in 3 years for surveillance. - Perform a flexible sigmoidoscopy to review polypectomy site in 3 hilary hs. - Resume previous diet. - Resume Coumadin (warfarin) today and Lovenox (enoxaparin) today at pr ior doses. - Patient has a contact number available for emergencies. The signs and symptoms of potential delayed complications were discussed with the pat ient. Return to normal activities tomorrow. Written discharge instructions we re provided to the patient. - Thank you for allowing me to be involved in the care of your patient. Attending Participation: I personally performed the entire procedure without the assistance of a fellow, resident or surg ical medical assistant instructor. Santino Aguirre MD Santino Aguirre MD 01/19/2018 9:06:43 AM This report has been signed electronicallyDavid MD Timothy Number of Addenda: 0 Note Initiated On: 01/19/2018 8:27 AM Total Procedure Duration Time 0 hours 15 minutes 11 seconds [email or web address]
[2018-01-19] MEDS ORDERED: ONDANSETRON 4 MG/2 ML VIAL IVP PRN (09:32)
[2018-01-19] MEDS ORDERED: fentaNYL 100 MCG/2 ML INJ IVP PRN (09:32)
[2018-01-19] MEDS ORDERED: NALOXONE HCL 0.4 MG/ML INJ IVP PRN (09:32)
[2018-01-19 10:08] VITALS: BP 120/70
--- NOTE | 2018-01-19 15:17 | POSTANESTH ---
Post Anesthetic Evaluation Cardiovascular Status: Normal, Stable Respiratory Status: Normal, Stable Level of Consciousness/Mental Status: Can Participate in Eval Pain Control: Adequate, Prn Tx Ordered Nausea/Vomiting Control: Adequate, Prn Tx Ordered Complications Possibly Related to Anesthesia: None Noted (seen prior to discharge. doing well. no compalints)
== END 2018-01-19 10:56 | disposition home or self-care (01) ==
LOC: FSGY 06:49
PROVIDERS: ATTEND Internal Medicine Gastroenterology
DX: Z12.11 Encounter for screening for malignant neoplasm of colon (principal); D12.7 Benign neoplasm of rectosigmoid junction; K64.9 Unspecified hemorrhoids; K92.1 Melena; I48.91 Unspecified atrial fibrillation; E10.9 Type 1 diabetes mellitus without complications; G47.33 Obstructive sleep apnea (adult) (pediatric); G61.81 Chronic inflammatory demyelinating polyneuritis; Z79.01 Long term (current) use of anticoagulants; Z95.2 Presence of prosthetic heart valve; Z95.0 Presence of cardiac pacemaker
CPT/HCPCS: J2704; J3010

== ENCOUNTER 2018-02-02 18:47 | Observation (INO) | payer OTHER, MEDICARE ==
--- NOTE | 2018-02-02 19:12 | EDPHY ---
H & P Time Seen by Provider: 02/02/18 19:08 HPI/ROS: Chief complaint. Fever HPI. Patient is a 72-year-old male insulin-dependent diabetic. He presents with complaint of fever for 3 days. He has noted his blood sugar has been elevated into the 200s with his illness. No upper respiratory symptoms or cough. He does know generalized fatigue. Colonoscopy 2 weeks ago with a polyp removed. Some suprapubic low abdominal pain for the last 2-3 days. He notes urinary frequency and decreased urination. No vomiting or diarrhea ROS 10 systems were reviewed and negative with the exception of the elements mentioned in the history of present illness Past Medical/Surgical History: Insulin-dependent diabetes, AFib, CHF, peripheral neuropathy, Asperger syndrome , CVA, pacemaker Social History: Single, nonsmoker, no alcohol Smoking Status: Never smoked Physical Exam: General Appearance: Alert well-developed male moderate distress vital signs show temp 38.1 degrees. Blood pressure 135/66 Eyes: Pupils equal and round no pallor or injection. ENT, pharynx without injection. Mucous membranes are moist Respiratory: There are no retractions, lungs are clear to auscultation. Cardiovascular: Regular rate and rhythm. Gastrointestinal: Abdomen is soft suprapubic tenderness. No masses. Normal bowel sounds Neurological: Awake and alert, sensory and motor exams grossly normal. Skin: Warm and dry, no rashes. Musculoskeletal: Neck is supple nontender. Extremities symmetrical, full range of motion. Psychiatric: Patient is oriented X 3, there is no agitation. Constitutional: Initial Vital Signs Temperature (C) 38.1 C 02/02/18 18:51 Heart Rate 63 02/02/18 18:51 Respiratory Rate 18 02/02/18 18:51 Blood Pressure 135/66 H 02/02/18 18:51 O2 Sat (%) 94 02/02/18 18:51 O2 Delivery Mode Room Air Allergies/Adverse Reactions: acetaminophen Allergy (Verified 02/02/18 18:51) "interferes with implanted glucose monitor" carvedilol [From Coreg] Allergy (Verified 02/02/18 18:51) peripheral neuropathy attack shortly after taking fentanyl Allergy (Verified 02/02/18 18:51) possibly r/t peripheral neuropathy attack shortly after taki meperidine HCl [From Demerol] Allergy (Verified 02/02/18 18:51) peripheral neuropathy attack shortly after taking metronidazole [From Flagyl] Allergy (Verified 02/02/18 18:51) peripheral neuropathy attack shortly after taking midazolam HCl [From Versed] Allergy (Verified 02/02/18 18:51) peripheral neuropathy attack shortly after taking pneumococcal vaccine Allergy (Verified 02/02/18 18:51) peripheral neuropathy attack shortly after taking FLU VACCINE Allergy (Uncoded 12/29/17 11:24) peripheral neuropathy attack shortly after taking Home Medications: Medication Instructions Recorded azaTHIOprine [Imuran 50 mg (*)] 06/09/16 Bupropion HCl [Bupropion HCl Sr] 08/07/16 Herbals/Supplements -Info Only 08/07/16 Insulin Pump, Patient Own 08/07/16 predniSONE 08/07/16 Citalopram Hydrobromide [Celexa] 01/07/17 Metoprolol Succinate Xr [Toprol Xl 04/17/17 25 mg (*)] Warfarin Sodium [Coumadin 5MG (*)] 04/17/17 Medical Decision Making - Diagnostics Imaging Results: Imaging Impressions Chest X-Ray 02/02/18 19:14 Impression: No pneumonia. Chest x-ray interpreted by me is normal Procedures: IV normal saline. Sepsis workup. Ibuprofen for fever though the patient is taking warfarin me. He is allergic to acetaminophen IV Rocephin and urine culture ED Course/Re-evaluation: Patient has had 2 and 0.5 L of saline. No urge to urinate. Bladder scan shows 220 mL but patient unable to urinate. Urine is obtained through catheterization Re-evaluation 10:35 p.m. Patient is stable. He and I discussed imaging and lab evaluation. We discussed treatment plan including recommendation for admission. He expresses understanding and agreement I consulted discussed the case with Dr. Carreno, hospitalist who agrees to the admission Differential Diagnosis: I considered pneumonia, sepsis, urinary tract infection, hyperglycemia - Data Points Laboratory Results: Laboratory Results 02/02/18 19:21 02/02/18 19:21 02/02/18 02/02/18 02/02/18 22:10 20:30 19:21 WBC RBC Hgb Hct MCV MCH MCHC RDW Plt Count MPV Neut % (Auto) Lymph % (Auto) Pender % (Auto) Eos % (Auto) Baso % (Auto) Nucleat RBC Rel Count Absolute Neuts (auto) Absolute Lymphs (auto) Absolute Monos (auto) Absolute Eos (auto) Absolute Basos (auto) Absolute Nucleated RBC Immature Gran % Immature Gran # RBC/WBC/PLT Morphology Platelet Estimate PT 21.3 SEC H SEC (12.0-15.0) INR 1.84 H (0.83-1.16) APTT 43.5 SEC H SEC (23.0-38.0) VBG Lactic Acid Sodium Potassium Chloride Carbon Dioxide Anion Gap BUN Creatinine Estimated GFR Glucose Calcium Total Bilirubin Urine Color ELIZABETH Urine Appearance CLEAR Urine pH 5.0 (5.0-7.5) Ur Specific [place] 1.025 (1.002-1.030) Urine Protein 1+ H (NEGATIVE) Urine Ketones NEGATIVE (NEGATIVE) Urine Blood 1+ H (NEGATIVE) Urine Nitrate POSITIVE H (NEGATIVE) Urine Bilirubin NEGATIVE (NEGATIVE) Urine Urobilinogen 4.0 EU H EU (0.2-1.0) Ur Leukocyte Esterase TRACE H (NEGATIVE) Urine RBC 3-5 /hpf H /hpf (0-3) Urine WBC 25-50 /hpf H /hpf (0-3) Ur Epithelial Cells TRACE /lpf /lpf (NONE-1+) Urine Bacteria 4+ /hpf H /hpf (NONE SEEN) Urine Glucose NEGATIVE (NEGATIVE) Nasal Influenza A PCR NEGATIVE FOR FLU A (NEGATIVE) Nasal Influenza B PCR NEGATIVE FOR FLU B (NEGATIVE) 02/02/18 02/02/18 02/02/18 19:21 19:21 19:21 WBC 6.56 10^3/uL 10^3/uL (3.80-9.50) RBC 3.54 10^6/uL L 10^6/uL (4.40-6.38) Hgb 13.2 g/dL L g/dL (13.7-17.5) Hct 36.8 % L % (40.0-51.0) MCV 104.0 fL H fL (81.5-99.8) MCH 37.3 pg H pg (27.9-34.1) MCHC 35.9 g/dL g/dL (32.4-36.7) RDW 13.5 % % (11.5-15.2) Plt Count 105 10^3/uL L 10^3/uL (150-400) MPV 10.6 fL fL (8.7-11.7) Neut % (Auto) 80.4 % H % (39.3-74.2) Lymph % (Auto) 5.6 % L % (15.0-45.0) Pender % (Auto) 12.0 % % (4.5-13.0) Eos % (Auto) 0.9 % % (0.6-7.6) Baso % (Auto) 0.3 % % (0.3-1.7) Nucleat RBC Rel Count 0.3 % H % (0.0-0.2) Absolute Neuts (auto) 5.27 10^3/uL 10^3/uL (1.70-6.50) Absolute Lymphs (auto) 0.37 10^3/uL L 10^3/uL (1.00-3.00) Absolute Monos (auto) 0.79 10^3/uL 10^3/uL (0.30-0.80) Absolute Eos (auto) 0.06 10^3/uL 10^3/uL (0.03-0.40) Absolute Basos (auto) 0.02 10^3/uL 10^3/uL (0.02-0.10) Absolute Nucleated RBC 0.02 10^3/uL H 10^3/uL (0-0.01) Immature Gran % 0.8 % % (0.0-1.1) Immature Gran # 0.05 10^3/uL 10^3/uL (0.00-0.10) RBC/WBC/PLT Morphology TNP Platelet Estimate TNP PT INR APTT VBG Lactic Acid 1.2 mmol/L mmol/L (0.7-2.1) Sodium 131 mEq/L L mEq/L (135-145) Potassium 4.4 mEq/L mEq/L (3.3-5.0) Chloride 97 mEq/L mEq/L (97-110) Carbon Dioxide 23 mEq/l mEq/l (22-31) Anion Gap 11 mEq/L mEq/L (6-14) BUN 17 mg/dL mg/dL (7-23) Creatinine 0.8 mg/dL mg/dL (0.7-1.3) Estimated GFR > 60 Glucose 119 mg/dL H mg/dL (70-100) Calcium 8.6 mg/dL mg/dL (8.5-10.4) Total Bilirubin 1.7 mg/dL H mg/dL (0.1-1.4) Urine Color Urine Appearance Urine pH Ur Specific [place] Urine Protein Urine Ketones Urine Blood Urine Nitrate Urine Bilirubin Urine Urobilinogen Ur Leukocyte Esterase Urine RBC Urine WBC Ur Epithelial Cells Urine Bacteria Urine Glucose Nasal Influenza A PCR Nasal Influenza B PCR Medications Given: Ceftriaxone Sodium/Dextrose (Rocephin 1 Gm (Premix)) 50 mls @ 100 mls/hr IV EDNOW ONE PRN Reason: Protocol Stop: 02/02/18 23:05 Last Admin: 02/02/18 22:41 Dose: 50 mls Discontinued Medications Sodium Chloride (Ns) 1,000 mls @ 0 mls/hr IV EDNOW ONE; Wide Open PRN Reason: Protocol Stop: 02/02/18 19:25 Last Admin: 02/02/18 19:34 Dose: 1,000 mls Sodium Chloride (Ns) 1,000 mls @ 0 mls/hr IV EDNOW ONE; Wide Open PRN Reason: Protocol Stop: 02/02/18 19:25 Last Admin: 02/02/18 19:33 Dose: 1,000 mls Ibuprofen (Motrin) 600 mg PO EDNOW ONE Stop: 02/02/18 19:25 Last Admin: 02/02/18 19:32 Dose: 600 mg Departure - Departure Disposition: [facility] Inpatient Acute Clinical Impression: Urinary tract infection Qualifiers: Urinary tract infection type: site unspecified Hematuria presence: with hematuria Qualified Code(s): N39.0 - Urinary tract infection, site not specified ; R31.9 - Hematuria, unspecified; R31.9 - Hematuria, unspecified Diabetes Qualifiers: Diabetes mellitus type: type 1 Diabetes mellitus complication status: with unspecified complications Qualified Code(s): E10.8 - Type 1 diabetes mellitus with unspecified complications Condition: Fair Referrals: Zach Cui MD [Primary Care Provider] - As per Instructions
[2018-02-02] MEDS ORDERED: IBUPROFEN 600 MG TAB PO ONE (19:24)
[2018-02-02] MEDS ORDERED: NS 1,000 ML IV ONE ×2 (19:24)
[2018-02-02 19:48] LABS: PLATELET COUNT 105 10^3/uL (150-400)
[2018-02-02 19:57] LABS: INR 1.84 (0.83-1.16); PROTIME(PATIENT) 21.3 SEC (12.0-15.0)
[2018-02-02] MEDS ORDERED: ONDANSETRON 4 MG/2 ML VIAL IVP PRN (22:58)
[2018-02-02] MEDS ORDERED: ONDANSETRON DISINTEGRATING 4 MG TAB PO PRN (22:58)
[2018-02-02] MEDS ORDERED: NS 1,000 ML IV SCH (23:00)
--- NOTE | 2018-02-03 05:13 | GHP ---
DATE OF ADMISSION: 02/02/2018 SOURCE: Patient provides history, appears reliable. EMR was reviewed and case discussed with ED pro vider. CHIEF COMPLAINT: Fevers and dysuria. 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 The patient also was concerned that his blood sugars were remaining elev ated over the 200s. He has reported increasing fatigue, increased frequency with decreased urine out put, some suprapubic abdominal pain which he attributed to a recent colonoscopy with polypectomy. Th e patient reports subjective fevers, chills and sweats at home. He denies any nausea, vomiting, or d iarrhea. He denies any melena, hematochezia, or hematuria. He has not had any rashes or sores. The patient decided later in the day that he would try to get an appointment with his PCP, however, he f ound that there were no available appointments and so presented to the emergency department this even ing for further evaluation. REVIEW OF SYSTEMS: Ten systems reviewed and negative except as noted above. ALLERGIES: To Tylenol, Coreg, fentanyl, Demerol, Flagyl, Versed, pneumonia and flu vaccinations. 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 PAST SURGICAL HISTORY: Significant for biventricular permanent pacemaker, hernia repair, aortic root replacement, ascending aortic aneurysm repair and mitral valve repair, cataract extraction, lens chaitanya cement on the right, left atrial appendage closure, AV node ablation. FAMILY HISTORY: Negative for CAD. The patient has a sister with a history of diabetes type 1. SOCIAL HISTORY: Patient currently lives alone. 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 He resides at [facility]. He occasionally drinks alcohol but nothing on a regular basis. No tobacco. Occasional mar ijuana but nothing in the last several months. Cor status is full. PHYSICAL EXAMINATION: VITAL SIGNS: Upon arrival to the emergency department, blood pressure is 135/ 66, heart rate 63, respiratory rate 18, O2 saturation 94% on room air, temperature 38.1. Current vit als available: Blood pressure is 118/62, heart rate 51, respiratory rate 18, O2 saturation 94% on ro om air with temperature 36.4. GENERAL: No acute distress. Very pleasant adult gentleman who is lyi ng quietly in bed. HEAD: Normocephalic, atraumatic. EYES: Extraocular muscles grossly intact. Pu pils equal, round, and reactive to light bilaterally and symmetric. Right cataract lens reflex is ap preciated. ENT: Mucous membranes appear moist. No oropharyngeal erythema or exudates. No nasal di scharge. NECK: Supple, trachea midline. CV: Regular rate and rhythm. No murmurs, rubs, or gallop s appreciated. No extremity edema appreciated. PSYCH: Thought process, content and questions are a ll appropriate. Patient is pleasant and cooperative. RESPIRATORY: Lungs are clear to auscultation bilaterally. No wheezes, rales, or rhonchi appreciated. Unlabored breathing. : No suprapubic te nderness to palpation. No Pena catheter in place. No CVA tenderness. GI: Positive bowel sounds. Soft, nontender to palpation. No rebound, guarding, or masses appreciated. Nondistended abdomen. MUSCULOSKELETAL: Strength is grossly normal. Moves all extremities. Sits up independently. NEURO: Grossly nonfocal. No facial drooping. PSYCH: Thought process, content and questions appropriate. Patient pleasant and cooperative. DIAGNOSTIC DATA: Chest x-ray: Image and report reviewed myself showing mild peribronchiolar thicken ing of the lower lobes that are unchanged from previous imaging. No effusion, consolidation. Heart size is normal. Left subclavian pacemaker leads and aortic valvular repair noted. Sternotomy wires present. LABORATORY STUDIES: WBC 6.56, H and H 13.2 and 36.8, MCV of 104, platelet count 105, neutrophil perc ent 80.4, no bands. PT 31.3, INR is 1.84, PTT is 43.5. VBG: Lactic acid 1.2. Sodium is 131, potas sium 4.4, chloride 97, CO2 is 23, anion gap 11, BUN is 17, creatinine 0.8. GFR greater than 60. Glu cose is 119, calcium is 8.6, total bilirubin is 1.7. UA: Specific gravity 1.025, pH of 5.0, protein 1+, 1+ blood, nitrate positive, negative bilirubin, 4 .0 urobilinogen, leuk esterase trace, RBCs 3-5, WBCs 25-50, epithelial trace, bacteria 4+, glucose ne gative. Flu A and B negative PCR. Blood cultures and urine cultures pending. ASSESSMENT AND PLAN: Pleasant 72-year-old gentleman with a significant cardiac history, currently on immunosuppression was azathioprine for history of chronic inflammatory demyelinating neuropathy, who presents to the emergency department today with complaints of fevers and dysuria. 1. Urinary tract infection. The patient has been started on Rocephin in the emergency department. He has never had a urine infection previously. He has had a measured fever greater than 38 here in [facility] emergency department. Cultures have been ordered and pending. 2. Sepsis without organ dysfunction. Patient's lactate within normal limits. Blood pressure is acc eptable. He does not have a leukocytosis. He did develop 1 low blood pressure systolic in the 90s, but this has improved after intravenous fluids. Continue treatment as noted above. 3. Diabetes type 1 with an insulin pump in place. Will plan to have patient continue his pump and m onitor with Accu-Cheks or with his monitoring device. Will not add any additional insulin dosing and will watch patient's blood sugars now that he is status post several liters of intravenous fluids. No laboratory changes to suggest diabetic ketoacidosis. No anion gap. 4. Chronic inflammatory demyelinating neuropathy. Continue patient's azathioprine. He has a mildly elevated bilirubin. Check liver function tests in the morning. 5. Anemia, baseline. The patient's hemoglobin and hematocrit appear to be close to baseline based o n historical laboratory studies. He has not had any active bleeding. Will continue to monitor. 6. Thrombocytopenia. Also appears to be chronic in nature. Etiology for this is unclear. He is on chronic Coumadin without any active bleeding. Will plan to repeat and monitor. Check liver functio n tests as noted above in the morning. 7. Immunosuppression. Patient takes daily azathioprine. Encouraged patient to seek medical evaluat ion sooner in the future if he should develop any fevers. 8. Systolic congestive heart failure. Patient without any evidence of decompensation. His left cedrick tricular ejection fraction is unknown at this time. Will continue with some gentle intravenous fluid hydration and monitor for fluid status closely. 9. History of atrial fibrillation status post atrioventricular node ablation, now status post curren t pacemaker. Distant heart sounds and bradycardic. 10. Obstructive sleep apnea. Supplemental oxygen p.r.n. 11. Bradycardia. As noted above, status post pacer. 12. History of depression. Resume patient's Wellbutrin and citalopram when med list is available fo r reconciliation. 13. Fluid, electrolyte, nutrition. Status post 2 liters intravenous fluid in the emergency departme nt. Patient was having some difficulty voiding in the emergency department as he had minimal urine o utput on bladder scan. He has subsequently had several voids since arrival to the floor. Will turn down intravenous fluids, encourage oral intake. Patient does have a history of systolic congestive h eart failure. Will monitor fluid status closely and place patient on a carb controlled diet. 14. Prophylaxis. Sequential compression devices. Holding anticoagulation in setting of thrombocyto penia. 15. Cor status is full. DISPOSITION: Patient admitted to observation status on the med surg floor anticipating less than 2 m idnight stay, assuming patient is able to continue to tolerate liquids and void independently without need for straight cath. /[id number]/MODL
[2018-02-03 05:55] LABS: PLATELET COUNT 75 10^3/uL (150-400)
[2018-02-03 05:57] LABS: INR 1.93 (0.83-1.16); PROTIME(PATIENT) 22.1 SEC (12.0-15.0)
[2018-02-03 07:53] VITALS: BP 122/60
--- NOTE | 2018-02-03 08:59 | PDDCSUM ---
Discharge Summary Discharge Summary: Date of Admission: 02/02/2018 Date of Discharge: 02/03/2018 Studies Pendin. Urine and blood cultures Disposition: discharge to [facility] (where he was prior to admission) Discharge Diagnoses: 1. Fever with UTI 2. Urinary retention, resolved 3. Chronic immunosuppression 4. Thrombocytopenia 5. Type 1 diabetes 6. Chronic inflammatory demyelinating polyneuropathy 7. Atrial fibrillation s/p AV bere ablation and dual chamber pacemaker placement on anticoagulation 8. H/o severe and ascending aortic aneurysm s/p repair and aortic root replacement ([facility] 01/2017) 9. H/o moderate MR s/p repair 10. Chronic systolic CHF now with normalized LVEF Brief Hospital Course: 72yo M with CIDP on azathioprine and low-dose prednisone, T1DM, afib on warfarin presented with 3 days of fevers and mild dysuria. Initially had urinary retention in ED requiring straight cath but no michael was placed. UA appeared infected. Started on ceftriaxone; he defervesced and clinically improved. He was not septic (despite admit H&P). He did not have any further episodes of urinary retention and I suspect this was due to infection. He is being discharged to complete 10 day course of cefdinir. Urine cultures are pending at discharge; he has never had UTI in past and low suspicion for resistant bacteria. Of note, his platelets were low which is somewhat chronic for him. No e/o bleeding. He should follow up with his PCP for this. Lastly, INR was just a bit below goal 2-3 (1.9) at discharge. This has been steadily rising after being held for a colonoscopy 2 weeks ago. Medications: Please refer to EMR for complete list. Changes this admission include addition of cefdinir. Follow Up Plan: 1. Complete course of antibiotics 2. INR check as scheduled 3. Recommend monitoring platelets with PCP Physical Exam: Vitals reviewed, afebrile since ED. Alert and oriented, dysconjugate gaze (chronic) but no other focal deficits. Wearing insulin pump, PPM pocket in left chest c/d/i. RRR without murmur, lungs clear, abdomen soft and nt, no rash, no edema.
== END 2018-02-03 10:12 | disposition home or self-care (01) ==
LOC: F3E 23:27
PROVIDERS: ADMIT Family Medicine; ATTEND Family Medicine
DX: N39.0 Urinary tract infection, site not specified (principal); D89.9 Disorder involving the immune mechanism, unspecified; D69.6 Thrombocytopenia, unspecified; E10.9 Type 1 diabetes mellitus without complications; G61.81 Chronic inflammatory demyelinating polyneuritis; I50.22 Chronic systolic (congestive) heart failure; I48.91 Unspecified atrial fibrillation; F84.5 Asperger's syndrome; G47.33 Obstructive sleep apnea (adult) (pediatric); Z98.890 Other specified postprocedural states; Z95.0 Presence of cardiac pacemaker; Z86.73 Personal history of transient ischemic attack (TIA), and cerebral infarction without residual deficits; Z79.01 Long term (current) use of anticoagulants
CPT/HCPCS: 51701; 71046; 96361; 96374; 99285; G0378; J0696

== ENCOUNTER → 2018-09-07 | Outpatient (CLI) | payer OTHER, MEDICARE | LOC: FIMAGING 08:56 ==